=== PATIENT | female | born 1965 | race Caucasian/White ===

== ENCOUNTER 2016-12-19 10:22 | Emergency (ER) | payer OTHER ==
[~2016-12-19] VITALS: Ht 157.4 cm; Wt 90.7 kg
[~2016-12-19 10:22] MED LIST: ASPIRIN ADULT L81 M1 PO; ATIVAN1 MG PO; ATORVASTATIN CA20 M1 PO; CELEXA20 MG PO; CIPRO500 MG PO; CLEOCIN150 MG PO; CLINDAMYCIN300 MG PO; CYCLOBENZAPRINE10 MG PO; FIORINAL 325 MG1 CAP PO; FLAGYL500 MG PO; HYDROCODONE BIT1 T11 PO; LEVOFLOXACIN500 MG PO; LIPITOR20 MG PO; LIPITOR40 MG PO; LISINOPRIL10 M1 PO; LISINOPRIL10 MG PO; LISINOPRIL20 MG PO; MOTRIN400 MG PO; MOTRIN600 MG PO; MOTRIN800 MG PO; NAPROSYN500 MG PO; NORCO 325 MG-51 TAB PO; NORCO 325 MG-7.1 TAB PO; OMEPRAZOLE40 MG PO; PAIN & FEVER R325 MG PO; PEN-VK500 MG PO; PENICILLIN-VK500 M1 PO; PERCOCET 325 MG1 TA2 PO; PERIDEX 480 ML480 ML PO; PHENERGAN25 M1 PO; PREDNISONE10 MG PO; PRILOSEC20 MG PO; PRILOSEC40 M1 PO; PROVENTIL0.09 MG/A1 INH; PYRIDIUM200 M1 PO; TOBREX OPHTH S2.5 ML OPH; TRAMADOL HCL50 MG PO; ULTRAM50 MG PO; VESICARE10 MG PO; VIBRAMYCIN100 MG PO; VICO10300 PO; VICODIN 5/500 505 MG PO; ZITHROMAX250 MG PO; ZOFRAN4 MG PO
[2016-12-19 10:35] VITALS: BP 142/91
[2016-12-19] MEDS ORDERED: BACTRIM DS 8001 TA1 PO (12:10)
[2016-12-19] MEDS ORDERED: HYDROCODONE BIT1 T11 PO (12:10)
[2016-12-19] MEDS ORDERED: CEPHALEXIN500 M1 PO (12:10)
== END 2016-12-19 12:48 | disposition home or self-care (01) ==
LOC: ED 10:22
DX: L03.011 Cellulitis of right finger (principal); Z29.12 Encounter for prophylactic antivenin

== ENCOUNTER 2017-04-13 16:19 | Emergency (ER) | payer OTHER ==
[~2017-04-13] VITALS: Ht 170.1 cm; Wt 83.9 kg
[~2017-04-13 16:19] MED LIST changes: +BACTRIM DS 8001 TA1 PO; +CEPHALEXIN500 M1 PO
[2017-04-13] MEDS ORDERED: OMEPRAZOLE40 MG PO (16:25)
[2017-04-13 18:44] VITALS: BP 155/90
[2017-04-13] MEDS ORDERED: Motrin,Rufen800 MG PO (18:45)
[2017-04-14] MEDS ORDERED: 'PARAFON FORTE500 M1 PO (14:24)
== END 2017-04-13 19:59 | disposition home or self-care (01) ==
LOC: ED 16:19
DX: T14.8 Other injury of unspecified body region (principal); R51 Headache; M54.2 Cervicalgia; M25.551 Pain in right hip; M25.552 Pain in left hip; I10 Essential (primary) hypertension; E78.00 Pure hypercholesterolemia, unspecified; K21.9 Gastro-esophageal reflux disease without esophagitis; J44.9 Chronic obstructive pulmonary disease, unspecified; Z79.899 Other long term (current) drug therapy

== ENCOUNTER 2017-04-14 13:33 | Emergency (ER) | payer OTHER ==
[~2017-04-14 13:33] MED LIST changes: +Motrin,Rufen800 MG PO
[2017-04-14 13:38] VITALS: BP 168/90
[2017-04-14] MEDS ORDERED: 'PARAFON FORTE500 M1 PO (14:24)
== END 2017-04-14 15:15 | disposition home or self-care (01) ==
LOC: ED 13:33
DX: T14.8 Other injury of unspecified body region (principal); R07.81 Pleurodynia; M25.511 Pain in right shoulder; R03.0 Elevated blood-pressure reading, without diagnosis of hypertension; F17.200 Nicotine dependence, unspecified, uncomplicated; Z79.899 Other long term (current) drug therapy; V89.2XXA Person injured in unspecified motor-vehicle accident, traffic, initial encounter; Y93.89 Activity, other specified; Y92.89 Other specified places as the place of occurrence of the external cause; Y99.8 Other external cause status

== ENCOUNTER → 2017-05-21 | Day surgery (SDC) | payer OTHER ==
[2017-05-17 12:03] LABS: BASO % 0.5 % (0.0-1.0); EOS # 0.1 10*3/uL (0.0-0.4); EOS % 1.5 % (1.0-4.0); HEMATOCRIT 40.7 % (37.0-47.0); HEMOGLOBIN 13.7 g/dl (12.0-16.0); LYMPH # 1.8 10*3/uL (1.3-4.4); LYMPH % 30.9 % (27.0-41.0); MEAN CELL VOLUME 87.3 fl (81.0-99.0); MEAN CORPUSCULAR HGB 29.4 pg (27.0-31.0); MEAN CORPUSCULAR HGB CONC 33.7 g/dl (33.0-37.0); MEAN PLATELET VOLUME 9.8 fl (9.6-12.3); MONO # 0.3 10*3/uL (0.1-1.0); MONO % 5.7 % (3.0-9.0); NEUT # 3.7 10*3/uL (2.3-7.9); NEUT % 61.2 % (47.0-73.0); PLATELET COUNT AUTOMATED 190 10*3/uL (130-400); RED BLOOD COUNT 4.66 10*6/uL (4.10-5.10); RED CELL DISTRI WIDTH 12.7 % (0-14.5)
[2017-05-17 12:28] LABS: BUN 17 mg/dl (7-24); CHLORIDE 107 mmol/L (98-107); CREATININE 0.96 mg/dL (0.55-1.02); SODIUM 142 mmol/L (136-145)
[~2017-05-21] VITALS: Ht 160 cm; Wt 96.2 kg
[~2017-05-21] MED LIST changes: +'PARAFON FORTE500 M1 PO; +ACCUNEB 0.1.25 MG/1 INH; +ASPIRIN81 M1 PO; +LIPITOR10 MG PO; +LISINOPRIL5 MG PO; +OXYBUTYNIN5 MG PO
[2017-05-21 11:10] VITALS: BP 115/73
[2017-05-21 11:22] VITALS: BP 121/67
[2017-05-21 11:40] VITALS: BP 133/80
== END | disposition home or self-care (01) ==
LOC: SDC 05-17 12:30
DX: M67.441 Ganglion, right hand (principal); I10 Essential (primary) hypertension; K21.9 Gastro-esophageal reflux disease without esophagitis; F41.9 Anxiety disorder, unspecified; E78.00 Pure hypercholesterolemia, unspecified; Z98.890 Other specified postprocedural states; Z90.49 Acquired absence of other specified parts of digestive tract; Z98.51 Tubal ligation status; Z82.49 Family history of ischemic heart disease and other diseases of the circulatory system; F17.210 Nicotine dependence, cigarettes, uncomplicated

== ENCOUNTER → 2017-05-23 | Outpatient (CLI) | payer OTHER | END | disposition home or self-care (01) | LOC: WOUNDCARE 08:30 | DX: T81.31XA Disruption of external operation (surgical) wound, not elsewhere classified, initial encounter (principal); F17.210 Nicotine dependence, cigarettes, uncomplicated; Y83.8 Other surgical procedures as the cause of abnormal reaction of the patient, or of later complication, without mention of misadventure at the time of the procedure; Y92.89 Other specified places as the place of occurrence of the external cause ==

== ENCOUNTER → 2017-05-30 | Outpatient (CLI) | payer OTHER | END | disposition home or self-care (01) | LOC: WOUNDCARE 00:50 | DX: T81.89XD Other complications of procedures, not elsewhere classified, subsequent encounter (principal); M79.641 Pain in right hand; R22.31 Localized swelling, mass and lump, right upper limb; F17.210 Nicotine dependence, cigarettes, uncomplicated; Y83.8 Other surgical procedures as the cause of abnormal reaction of the patient, or of later complication, without mention of misadventure at the time of the procedure ==

== ENCOUNTER 2017-09-14 16:05 | Emergency (ER) | payer OTHER ==
[~2017-09-14] VITALS: Ht 160 cm; Wt 83.9 kg
--- NOTE | ~2017-09-14 | EKG ---
[place], [place] ELECTROCARDIOGRAM REPORT NAME: JANAY ELLINGTON UNIT #: [id number] ROOM: DOCTOR: MARTHA OLGUIN MD BIRTHDATE: [birth year] DOS: 09/14/2017 TIME: 1709 hours. Normal sinus rhythm at 69 beats per minute. Borderline measurement for first-degree heart block. Low voltage in precordial leads. An abnormal ECG. No previous tracing is available for comparison. MARTHA OLGUIN MD CM:EKGRPT:ELECTROCARDIOGRAM REPORT 1706 [id number] MARTHA OLGUIN MD
[2017-09-14 17:11] LABS: BASO % 0.4 % (0.0-1.0); EOS # 0.1 10*3/uL (0.0-0.4); EOS % 1.7 % (1.0-4.0); HEMOGLOBIN 14.8 g/dl (12.0-16.0); LYMPH # 2.1 10*3/uL (1.3-4.4); LYMPH % 39.2 % (27.0-41.0); MEAN CELL VOLUME 85.9 fl (81.0-99.0); MEAN CORPUSCULAR HGB 28.9 pg (27.0-31.0); MEAN CORPUSCULAR HGB CONC 33.6 g/dl (33.0-37.0); MEAN PLATELET VOLUME 9.6 fl (9.6-12.3); MONO # 0.3 10*3/uL (0.1-1.0); MONO % 5.1 % (3.0-9.0); NEUT # 2.8 10*3/uL (2.3-7.9); NEUT % 53.6 % (47.0-73.0); PLATELET COUNT AUTOMATED 201 10*3/uL (130-400); RED BLOOD COUNT 5.12 10*6/uL (4.10-5.10); RED CELL DISTRI WIDTH 12.8 % (0-14.5); WHITE BLOOD COUNT 5.3 10*3/uL (4.8-10.8)
[2017-09-14 17:15] VITALS: BP 146/83
[2017-09-14 17:22] LABS: ACT PARTIAL THROMBO TIME 23.6 SECONDS (20.8-31.5); INTERNATIONAL NORM RATIO 0.9 (2.0-3.5)
[2017-09-14 17:31] LABS: ALBUMIN 3.6 gm/dl (3.1-4.5); ALKALINE PHOSPHATASE 72 U/L (45-117); BUN 12 mg/dl (7-24); CHLORIDE 107 mmol/L (98-107); CREATININE 0.84 mg/dL (0.55-1.02); LIPASE 201 U/L (73-393); POTASSIUM 3.4 mmol/L (3.5-5.1); SGOT/AST 12 IU/L (3-35); SGPT/ALT 20 U/L (12-78); SODIUM 139 mmol/L (136-145); TOTAL PROTEIN 7.4 gm/dL (6.4-8.2)
[2017-09-14 17:32] LABS: TROPONIN I < 0.015 ng/ml (<0.045)
== END 2017-09-14 18:40 | disposition left against medical advice (07) ==
LOC: ED 16:05
PROVIDERS: Emergency Medicine
DX: R06.02 Shortness of breath (principal); R19.7 Diarrhea, unspecified; R51 Headache; R05 Cough; R07.9 Chest pain, unspecified; I10 Essential (primary) hypertension; E78.00 Pure hypercholesterolemia, unspecified; J44.9 Chronic obstructive pulmonary disease, unspecified; K21.9 Gastro-esophageal reflux disease without esophagitis; E66.01 Morbid (severe) obesity due to excess calories; Z79.899 Other long term (current) drug therapy; Z79.82 Long term (current) use of aspirin; Z68.39 Body mass index [BMI] 39.0-39.9, adult

== ENCOUNTER 2017-12-02 09:49 | Emergency (ER) | payer OTHER ==
[~2017-12-02] VITALS: Ht 160 cm; Wt 95.3 kg
[2017-12-02 09:52] VITALS: BP 166/107
[2017-12-02 10:20] LABS: BASO % 0.5 % (0.0-1.0); EOS # 0.1 10*3/uL (0.0-0.4); EOS % 1.2 % (1.0-4.0); HEMATOCRIT 41.2 % (37.0-47.0); HEMOGLOBIN 13.9 g/dl (12.0-16.0); LYMPH # 1.4 10*3/uL (1.3-4.4); LYMPH % 34.4 % (27.0-41.0); MEAN CELL VOLUME 85.7 fl (81.0-99.0); MEAN CORPUSCULAR HGB 28.9 pg (27.0-31.0); MEAN CORPUSCULAR HGB CONC 33.7 g/dl (33.0-37.0); MEAN PLATELET VOLUME 9.2 fl (9.6-12.3); MONO # 0.3 10*3/uL (0.1-1.0); MONO % 6.1 % (3.0-9.0); NEUT # 2.3 10*3/uL (2.3-7.9); NEUT % 57.6 % (47.0-73.0); PLATELET COUNT AUTOMATED 174 10*3/uL (130-400); RED BLOOD COUNT 4.81 10*6/uL (4.10-5.10); WHITE BLOOD COUNT 4.1 10*3/uL (4.8-10.8)
[2017-12-02 10:36] LABS: ALBUMIN 3.6 gm/dl (3.1-4.5); ALKALINE PHOSPHATASE 62 U/L (45-117); BUN 15 mg/dl (7-24); CHLORIDE 107 mmol/L (98-107); CREATININE 0.76 mg/dL (0.55-1.02); POTASSIUM 3.8 mmol/L (3.5-5.1); SGOT/AST 14 IU/L (3-35); SGPT/ALT 20 U/L (12-78); SODIUM 141 mmol/L (136-145); TOTAL PROTEIN 6.8 gm/dL (6.4-8.2)
[2017-12-02 10:39] LABS: TROPONIN I < 0.015 ng/ml (<0.045)
== END 2017-12-02 11:36 | disposition home or self-care (01) ==
LOC: ED 09:49
PROVIDERS: Nurse Practitioner Family
DX: I10 Essential (primary) hypertension (principal); J44.9 Chronic obstructive pulmonary disease, unspecified; K21.9 Gastro-esophageal reflux disease without esophagitis; E78.00 Pure hypercholesterolemia, unspecified; E66.9 Obesity, unspecified; F17.200 Nicotine dependence, unspecified, uncomplicated; Z90.49 Acquired absence of other specified parts of digestive tract; Z98.51 Tubal ligation status; Z98.890 Other specified postprocedural states; Z79.82 Long term (current) use of aspirin; Z68.39 Body mass index [BMI] 39.0-39.9, adult; Z79.899 Other long term (current) drug therapy

== ENCOUNTER 2017-12-21 08:55 | Emergency (ER) | payer OTHER ==
[~2017-12-21] VITALS: Ht 160 cm; Wt 95.3 kg
[2017-12-21 08:56] VITALS: BP 153/85
== END 2017-12-21 09:31 | disposition home or self-care (01) ==
LOC: ED 08:55
DX: S30.860A Insect bite (nonvenomous) of lower back and pelvis, initial encounter (principal); J44.9 Chronic obstructive pulmonary disease, unspecified; K21.9 Gastro-esophageal reflux disease without esophagitis; E78.00 Pure hypercholesterolemia, unspecified; E66.9 Obesity, unspecified; Z68.39 Body mass index [BMI] 39.0-39.9, adult; Z90.49 Acquired absence of other specified parts of digestive tract; Z98.51 Tubal ligation status; Z98.890 Other specified postprocedural states; Z79.82 Long term (current) use of aspirin; Z79.899 Other long term (current) drug therapy; W57.XXXA Bitten or stung by nonvenomous insect and other nonvenomous arthropods, initial encounter; Y93.89 Activity, other specified; Y92.096 Garden or yard of other non-institutional residence as the place of occurrence of the external cause; Y99.9 Unspecified external cause status

== ENCOUNTER 2018-09-01 08:58 | Inpatient (IN) | payer OTHER ==
[2018-09-01] VITALS (7 sets, daily range): BP systolic 128–163; BP diastolic 59–90
[~2018-09-01] VITALS: Ht 160 cm; Wt 97.2 kg
--- NOTE | ~2018-09-01 | EKG ---
[place], [place] ELECTROCARDIOGRAM REPORT NAME: JANAY ELLINGTON UNIT #: [id number] ROOM: 526 DOCTOR: TRE DRAFT REPORT BIRTHDATE: [birth year] [facility] Test Date: 2018-09-01 Test Time: 15:21:52 Pat Name: JANAY ELLINGTON Department: Room: 52 1 Gender: F Comb Fixer: Edilia Fowler : 1965 Requested By: YVON MORGAN Order Number: [id number] Reading MD: Tiffany Escudero MD Measurements Intervals [place] Rate: 65 P: [place]: QRS: 30 QRSD: 92 T: 29 QT: 408 QTc: 425 Interpretive Statements Atrial fibrillation Low voltage, precordial leads Abnormal R-wave progression, early transition No previous ECG available for comparison Electronically Signed On 09-01-2018 15:07:07 PST by Tiffany Escudero MD CM:EKGRPT:ELECTROCARDIOGRAM REPORT 1521 1507 YVON MORGAN EPIPHANY DRAFT REPORT YVON MORGAN
--- NOTE | ~2018-09-01 | EKG ---
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
--- NOTE | ~2018-09-01 | EKG ---
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
[2018-09-01 09:23] LABS: BASO % 0.6 % (0.0-1.0); EOS # 0.1 10*3/uL (0.0-0.4); EOS % 1.2 % (1.0-4.0); HEMOGLOBIN 13.6 g/dl (12.0-16.0); LYMPH # 1.7 10*3/uL (1.3-4.4); LYMPH % 34.1 % (27.0-41.0); MEAN CORPUSCULAR HGB 28.8 pg (27.0-31.0); MEAN CORPUSCULAR HGB CONC 32.4 g/dl (33.0-37.0); MEAN PLATELET VOLUME 9.7 fl (9.6-12.3); MONO # 0.2 10*3/uL (0.1-1.0); MONO % 4.3 % (3.0-9.0); NEUT % 59.6 % (47.0-73.0); PLATELET COUNT AUTOMATED 189 10*3/uL (130-400); RED BLOOD COUNT 4.72 10*6/uL (4.10-5.10); RED CELL DISTRI WIDTH 12.5 % (0-14.5); WHITE BLOOD COUNT 5.1 10*3/uL (4.8-10.8)
[2018-09-01 09:40] LABS: ALBUMIN 3.2 gm/dl (3.1-4.5); BUN 14 mg/dl (7-24); CHLORIDE 107 mmol/L (98-107); CREATININE 1.04 mg/dL (0.55-1.02); LIPASE 126 U/L (73-393); POTASSIUM 3.5 mmol/L (3.5-5.1); SGOT/AST 12 IU/L (3-35); SGPT/ALT 24 U/L (12-78); SODIUM 139 mmol/L (136-145)
[2018-09-01 09:42] LABS: ALKALINE PHOSPHATASE 79 U/L (45-117); TOTAL PROTEIN 6.8 gm/dL (6.4-8.2)
[2018-09-01 09:45] LABS: ACT PARTIAL THROMBO TIME 22.5 SECONDS (20.8-31.5); INTERNATIONAL NORM RATIO 0.9 (2.0-3.5)
[2018-09-01 10:08] LABS: TROPONIN I < 0.015 ng/ml (<0.045)
--- NOTE | 2018-09-01 11:22 | NUR ---
A 53, admitted to , under the services of ANGELA Bonilla DO with a diagnosis of CHEST PAIN, ACUTE RENAL INSUFFICIENCY. Chief complaint is HIGH BLOOD PRESSURE, CHEST PAIN. Patient arrived via wheel chair from ER. Monitor applied. Initial assessment completed. Vital signs taken and recorded. ANGELA BONILLA DO notified of admission to the unit. Orders received. See assessment for past medical history, medications and allergies. Patient and/or family oriented to unit. [facility]. Clothing/patient valuable form completed. KIKI GAMEZ
[2018-09-01] MEDS ORDERED: TOPROL XL25 MG PO (12:07)
[2018-09-01] MEDS ORDERED: OXYBUTYNIN5 MG PO (12:08)
--- NOTE | 2018-09-01 12:09 | NUR ---
MED REC UP TO DATE WITH PATIENT AT THIS TIME.
--- NOTE | 2018-09-01 12:13 | NUR ---
DR. CAMPUZANO OFFICE CALLED AT THIS TIME AND MADE AWARE OF NEW CONSULT.
--- NOTE | 2018-09-01 13:27 | NUR ---
ORTHOS NEGATIVE AT THIS TIME. PATIENT TOLERATED WELL.
--- NOTE | 2018-09-01 20:00 | NUR ---
PT. INFORMED THAT SHE WOULD BE NPO AFTER MIDNIGHT FOR STRESS TEST IN THE MORNING. PT. VERBALIZED UNDERSTANDING. VOICES NO C/O AT THIS TIME. CALL LIGHT WITHIN REACH.
[2018-09-02] VITALS: BP 122/65
--- NOTE | 2018-09-02 00:55 | NUR ---
24 HR chart check completed.
[2018-09-02 05:50] LABS: BASO % 0.4 % (0.0-1.0); EOS # 0.1 10*3/uL (0.0-0.4); EOS % 1.8 % (1.0-4.0); HEMATOCRIT 41.6 % (37.0-47.0); HEMOGLOBIN 13.5 g/dl (12.0-16.0); LYMPH # 2.1 10*3/uL (1.3-4.4); MEAN CELL VOLUME 89.5 fl (81.0-99.0); MEAN CORPUSCULAR HGB CONC 32.5 g/dl (33.0-37.0); MEAN PLATELET VOLUME 9.5 fl (9.6-12.3); MONO # 0.3 10*3/uL (0.1-1.0); NEUT % 54.6 % (47.0-73.0); PLATELET COUNT AUTOMATED 168 10*3/uL (130-400); RED BLOOD COUNT 4.65 10*6/uL (4.10-5.10); RED CELL DISTRI WIDTH 12.6 % (0-14.5); WHITE BLOOD COUNT 5.6 10*3/uL (4.8-10.8)
[2018-09-02 06:13] LABS: ALBUMIN 3.1 gm/dl (3.1-4.5); ALKALINE PHOSPHATASE 77 U/L (45-117); BUN 12 mg/dl (7-24); CHLORIDE 106 mmol/L (98-107); CHOLESTEROL 230 mg/dL (<200); CREATININE 0.78 mg/dL (0.55-1.02); FREE T4 1.01 ng/dl (0.76-1.46); HDL CHOLESTEROL 34 mg/dl (40-60); LDL CHOLESTEROL 176 mg/dL (9-159); PHOSPHOROUS 3.1 mg/dL (2.5-4.9); POTASSIUM 3.6 mmol/L (3.5-5.1); SGOT/AST 11 IU/L (3-35); SGPT/ALT 21 U/L (12-78); SODIUM 141 mmol/L (136-145); TOTAL PROTEIN 6.6 gm/dL (6.4-8.2); TRIGLYCERIDES 102 mg/dl (<150); VLDL CHOLESTEROL 20 mg/dL (6-40)
[2018-09-02 08:00] VITALS: BP 134/66
[2018-09-02 08:25] LABS: VITAMIN D, 25-HYDROXY 37.5 ng/mL (30-100)
--- NOTE | 2018-09-02 10:30 | NUR ---
INFORMED CONSENT SIGNED FOR STANDARD STRESS TEST WITH DR. CAMPUZANO. RESTING EKG NSR, HR 66, BP 124/84. COMPLETED 6:53 OF A STANDARD HARSH PROTOCOL COMPLETING :53 STAGE III, 3.4MPH/14% GRADE. PEAK HEART RATE OF 144 ACHIEVED WHICH IS 85% PREDICTED MAXIMUM AND A PEAK BP OF 158/80. NO ARRHYTHMIAS OR ST CHANGES NOTED. TEST TERMINATED D/T FATIGUE AND SOB. HAS AN AVERAGE EXERCISE TOLERANCE. LAST RECOVERY HR 78, BP 140/80. THIS IS A NEGATIVE STRESS TEST.
--- NOTE | 2018-09-02 10:35 | NUR ---
Beader Tender in to talk to patient. Patient states lives at HOME with . There are NO steps in the home. Physician: Grover COLE [facility]: [facility] Home health services: NONE Patient's level of ADLs: INDEPENDENT Patient has working utilities: YES DME: NONE Follow-up physician's appointment after d/c: WILL BE MADE BY HOSPITALIST NURSE DIRECTOR ON DISCHARGE Does patient want to access PORTAL?: NO Discharge plan PT STATES SHE LIVES AT [place] WITH AND IS INDEPENDENT IN CARE. STATES NO NEEDS AT HOME AFTER DISCHARGE. PT CAN BE DISCHARGED TO HOME WHEN MEDICALLY STABLE. WILL CONTINUE TO FOLLOW.. DOMINIC FELIX
[2018-09-02 12:00] VITALS: BP 111/46
[2018-09-02 16:00] VITALS: BP 143/75
[2018-09-02] MEDS ORDERED: ATORVASTATIN CA80 M1 PO (16:15)
--- NOTE | 2018-09-02 18:31 | NUR ---
Discharge instructions reviewed with patient/family. Patient receptive and verbalizes understanding. Follow-up care arranged. Written instructions given to patient/family. WENT OVER DISCHARGE PACKET WITH PATIENT. PATIENT RECIEVED PRESCRIPTION. IV REMOVED, PATIENT TOLERATED WELL. HEART MONITOR REMOVED AND PLACED IN NURSING STATION. PATIENT DENIES ANY NEEDS AT THIS TIME. PATIENT DENIES THE NEED FOR WHEELCHAIR. PATIENT AMBULATED OFF FLOOR WITH FAMILY AT THIS TIME. KIKI GAMEZ
[2018-10-31] MEDS ORDERED: MUCINEX D ER 61 EACH PO (10:03)
[2018-10-31] MEDS ORDERED: AVPAK AZITHROM250 M1 PO (10:05)
[2018-10-31] MEDS ORDERED: ZANTAC 150150 MG PO (10:06)
[2018-10-31] MEDS ORDERED: LOPRESSOR25 MG PO (10:16)
[2018-11-04] MEDS ORDERED: FOLGARD TABLET1 EACH PO (13:06)
[2018-11-04] MEDS ORDERED: FISH OIL 1,0001 EAC1 PO (13:06)
[2018-11-04] MEDS ORDERED: MACROBID100 M1 PO (18:12)
[2018-11-04] MEDS ORDERED: VISTARIL25 M2 PO (18:12)
[2018-11-04] MEDS ORDERED: COLACE100 MG PO (18:12)
[2018-11-07] MEDS ORDERED: COLACE100 MG PO (13:48)
[2018-11-11] MEDS ORDERED: FLAGYL500 MG PO (11:02)
[2018-11-11] MEDS ORDERED: ZOFRAN4 MG PO (11:02)
[2018-11-11] MEDS ORDERED: CIPRO250 MG PO (11:02)
== END 2018-09-02 18:31 | disposition home or self-care (01) | DRG 205 ==
LOC: ED 08:58 → 5E 10:28 → EDHOLD 10:28 → 5E 11:04
PROVIDERS: Nurse Practitioner Family; Registered Nurse; ADMIT Internal Medicine
PROC: 4A02XM4 Measurement of Cardiac Total Activity, External Approach (ICD-10-PCS; principal; 2018-09-02)
DX: M94.0 Chondrocostal junction syndrome [Tietze] (principal); N17.0 Acute kidney failure with tubular necrosis; R07.89 Other chest pain; K21.9 Gastro-esophageal reflux disease without esophagitis; F41.1 Generalized anxiety disorder; E86.0 Dehydration; E44.0 Moderate protein-calorie malnutrition; I10 Essential (primary) hypertension; J44.9 Chronic obstructive pulmonary disease, unspecified; E78.00 Pure hypercholesterolemia, unspecified; E66.9 Obesity, unspecified; F17.210 Nicotine dependence, cigarettes, uncomplicated; R73.9 Hyperglycemia, unspecified; R00.2 Palpitations; E78.5 Hyperlipidemia, unspecified; E83.51 Hypocalcemia; Z68.37 Body mass index [BMI] 37.0-37.9, adult; Z91.81 History of falling; Z87.440 Personal history of urinary (tract) infections; Z90.49 Acquired absence of other specified parts of digestive tract; Z98.51 Tubal ligation status; Z82.49 Family history of ischemic heart disease and other diseases of the circulatory system; Z83.438 Family history of other disorder of lipoprotein metabolism and other lipidemia; Z84.89 Family history of other specified conditions; Z79.82 Long term (current) use of aspirin; Z79.899 Other long term (current) drug therapy; Z71.6 Tobacco abuse counseling

== ENCOUNTER 2018-10-20 15:20 | Emergency (ER) | payer OTHER ==
[~2018-10-20] VITALS: Ht 160 cm; Wt 97.5 kg
[~2018-10-20 15:20] MED LIST changes: +ATORVASTATIN CA80 M1 PO; +TOPROL XL25 MG PO
[2018-10-20 15:22] VITALS: BP 142/90
[2018-10-20 16:04] LABS: BASO % 0.6 % (0.0-1.0); EOS # 0.1 10*3/uL (0.0-0.4); HEMOGLOBIN 14.4 g/dl (12.0-16.0); LYMPH # 2.5 10*3/uL (1.3-4.4); LYMPH % 34.2 % (27.0-41.0); MEAN CELL VOLUME 88.7 fl (81.0-99.0); MEAN CORPUSCULAR HGB 29.7 pg (27.0-31.0); MEAN CORPUSCULAR HGB CONC 33.5 g/dl (33.0-37.0); MEAN PLATELET VOLUME 10.2 fl (9.6-12.3); MONO # 0.4 10*3/uL (0.1-1.0); MONO % 5.8 % (3.0-9.0); NEUT # 4.2 10*3/uL (2.3-7.9); NEUT % 58.1 % (47.0-73.0); PLATELET COUNT AUTOMATED 208 10*3/uL (130-400); RED BLOOD COUNT 4.85 10*6/uL (4.10-5.10); RED CELL DISTRI WIDTH 12.8 % (0-14.5); WHITE BLOOD COUNT 7.3 10*3/uL (4.8-10.8)
[2018-10-20 16:24] LABS: ACT PARTIAL THROMBO TIME 21.6 SECONDS (20.8-31.5); INTERNATIONAL NORM RATIO 0.9 (2.0-3.5)
[2018-10-20 16:32] LABS: ALBUMIN 3.4 gm/dl (3.1-4.5); ALKALINE PHOSPHATASE 90 U/L (45-117); BUN 11 mg/dl (7-24); CHLORIDE 108 mmol/L (98-107); CREATININE 0.93 mg/dL (0.55-1.02); POTASSIUM 4.4 mmol/L (3.5-5.1); SGOT/AST 17 IU/L (3-35); SGPT/ALT 19 U/L (12-78); SODIUM 141 mmol/L (136-145); TOTAL PROTEIN 7.2 gm/dL (6.4-8.2)
[2018-10-20] MEDS ORDERED: ZOFRAN4 MG PO (18:34)
[2018-10-31] MEDS ORDERED: MUCINEX D ER 61 EACH PO (10:03)
[2018-10-31] MEDS ORDERED: AVPAK AZITHROM250 M1 PO (10:05)
[2018-10-31] MEDS ORDERED: ZANTAC 150150 MG PO (10:06)
[2018-10-31] MEDS ORDERED: LOPRESSOR25 MG PO (10:16)
[2018-11-04] MEDS ORDERED: FISH OIL 1,0001 EAC1 PO (13:06)
[2018-11-04] MEDS ORDERED: FOLGARD TABLET1 EACH PO (13:06)
[2018-11-04] MEDS ORDERED: MACROBID100 M1 PO (18:12)
[2018-11-04] MEDS ORDERED: VISTARIL25 M2 PO (18:12)
[2018-11-04] MEDS ORDERED: COLACE100 MG PO (18:12)
[2018-11-07] MEDS ORDERED: COLACE100 MG PO (13:48)
[2018-11-11] MEDS ORDERED: CIPRO250 MG PO (11:02)
[2018-11-11] MEDS ORDERED: FLAGYL500 MG PO (11:02)
[2018-11-11] MEDS ORDERED: ZOFRAN4 MG PO (11:02)
== END 2018-10-20 18:42 | disposition home or self-care (01) ==
LOC: ED 15:20
PROVIDERS: Emergency Medicine
DX: F45.8 Other somatoform disorders (principal); J39.8 Other specified diseases of upper respiratory tract; I10 Essential (primary) hypertension; E78.00 Pure hypercholesterolemia, unspecified; J44.9 Chronic obstructive pulmonary disease, unspecified; E66.9 Obesity, unspecified; F17.200 Nicotine dependence, unspecified, uncomplicated; Z79.899 Other long term (current) drug therapy; Z79.82 Long term (current) use of aspirin; Z68.30 Body mass index [BMI] 30.0-30.9, adult; Z90.49 Acquired absence of other specified parts of digestive tract

== ENCOUNTER 2018-11-02 12:02 | Emergency (ER) | payer OTHER ==
[~2018-11-02] VITALS: Ht 160 cm; Wt 93.4 kg
--- NOTE | ~2018-11-02 | EKG ---
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
[~2018-11-02 12:02] MED LIST changes: +AVPAK AZITHROM250 M1 PO; +LOPRESSOR25 MG PO; +MUCINEX D ER 61 EACH PO; +ZANTAC 150150 MG PO
[2018-11-02 12:07] VITALS: BP 177/62
[2018-11-04] MEDS ORDERED: FISH OIL 1,0001 EAC1 PO (13:06)
[2018-11-04] MEDS ORDERED: FOLGARD TABLET1 EACH PO (13:06)
[2018-11-04] MEDS ORDERED: MACROBID100 M1 PO (18:12)
[2018-11-04] MEDS ORDERED: VISTARIL25 M2 PO (18:12)
[2018-11-04] MEDS ORDERED: COLACE100 MG PO (18:12)
[2018-11-07] MEDS ORDERED: COLACE100 MG PO (13:48)
[2018-11-11] MEDS ORDERED: CIPRO250 MG PO (11:02)
[2018-11-11] MEDS ORDERED: FLAGYL500 MG PO (11:02)
[2018-11-11] MEDS ORDERED: ZOFRAN4 MG PO (11:02)
== END 2018-11-02 14:25 | disposition home or self-care (01) ==
LOC: ED 12:02
DX: F41.9 Anxiety disorder, unspecified (principal); R06.02 Shortness of breath; R20.2 Paresthesia of skin; J44.9 Chronic obstructive pulmonary disease, unspecified; K21.9 Gastro-esophageal reflux disease without esophagitis; I10 Essential (primary) hypertension; E78.00 Pure hypercholesterolemia, unspecified; E66.9 Obesity, unspecified; F17.200 Nicotine dependence, unspecified, uncomplicated; Z79.899 Other long term (current) drug therapy; Z79.82 Long term (current) use of aspirin; Z68.39 Body mass index [BMI] 39.0-39.9, adult

== ENCOUNTER → 2018-12-04 | Outpatient (CLI) | payer OTHER ==
[~2018-12-04] MED LIST changes: +CIPRO250 MG PO; +COLACE100 MG PO; +FISH OIL 1,0001 EAC1 PO; +FOLGARD TABLET1 EACH PO; +MACROBID100 M1 PO; +VISTARIL25 M2 PO
[2018-12-04 10:25] LABS: HEMATOCRIT 38.7 % (37.0-47.0); HEMOGLOBIN 12.8 g/dl (12.0-16.0); MEAN CELL VOLUME 89.4 fl (81.0-99.0); MEAN CORPUSCULAR HGB 29.6 pg (27.0-31.0); MEAN CORPUSCULAR HGB CONC 33.1 g/dl (33.0-37.0); RED BLOOD COUNT 4.33 10*6/uL (4.10-5.10); RED CELL DISTRI WIDTH 13.2 % (0-14.5); WHITE BLOOD COUNT 4.8 10*3/uL (4.8-10.8)
[2018-12-04 10:53] LABS: CHLORIDE 110 mmol/L (98-107); POTASSIUM 3.5 mmol/L (3.5-5.1); SODIUM 143 mmol/L (136-145)
[2018-12-04 11:14] LABS: ALBUMIN 2.9 gm/dl (3.1-4.5); ALKALINE PHOSPHATASE 79 U/L (45-117); BUN 10 mg/dl (7-24); CHOLESTEROL 162 mg/dL (<200); CPK 46 U/L (26-192); CREATININE 0.79 mg/dL (0.55-1.02); HDL CHOLESTEROL 33 mg/dl (40-60); LDL CHOLESTEROL 105 mg/dL (9-159); SGOT/AST 17 IU/L (3-35); SGPT/ALT 36 U/L (12-78); TOTAL PROTEIN 6.5 gm/dL (6.4-8.2); TRIGLYCERIDES 122 mg/dl (<150); VLDL CHOLESTEROL 24 mg/dL (6-40)
[2018-12-04 12:07] LABS: VITAMIN D, 25-HYDROXY 39.4 ng/mL (30-100)
[2018-12-05 06:12] LABS: HEPATITIS B SURFACE AG Negative (Negative); HEPATITIS C VIRUS ANTIBODY <0.1 s/co (0.0-0.9)
[2018-12-05 08:09] LABS: H PYLORI IGG AB 162289 0.59 (0.00-0.79); RHEUMATOID ARTHRITIS FACTOR <10.0 IU/mL (0.0-13.9)
== END | disposition home or self-care (01) ==
LOC: LAB 09:56
PROVIDERS: Family Medicine
DX: R06.02 Shortness of breath (principal); E78.00 Pure hypercholesterolemia, unspecified; I10 Essential (primary) hypertension; E74.9 Disorder of carbohydrate metabolism, unspecified; E55.9 Vitamin D deficiency, unspecified; M25.50 Pain in unspecified joint; K58.9 Irritable bowel syndrome, unspecified

== ENCOUNTER 2019-04-09 08:54 | Emergency (ER) | payer OTHER ==
[~2019-04-09] VITALS: Ht 160 cm; Wt 95.3 kg
--- NOTE | ~2019-04-09 | EKG ---
[place], [place] ELECTROCARDIOGRAM REPORT NAME: JANAY ELLINGTON UNIT #: [id number] ROOM: DOCTOR: EPIPHANY DRAFT REPORT BIRTHDATE: [birth year] [facility] Test Date: 2019-04-09 Test Time: 09:01:38 Pat Name: JANAY ELLINGTON Department: Room: Gender: F Painting Manager: : 1965 Requested By: LISA REYEZ Order Number: [id number] Reading MD: Elijah Vivar Measurements Intervals [place] Rate: 72 P: 5 WI: 175 QRS: 9 QRSD: 89 T: 6 QT: 388 QTc: 425 Interpretive Statements Sinus rhythm Low voltage, precordial leads RSR' in V1 or V2, right VCD or RVH Compared to ECG 04/07/2019 17:02:22 Right ventricular hypertrophy now present RSR' in V1 or V2 now present Electronically Signed On 04-10-2019 9:24:46 PDT by Elijah Vivar CM:EKGRPT:ELECTROCARDIOGRAM REPORT 0 3 LISA TOLEDO DRAFT REPORT LISA REYEZ MD
[~2019-04-09 08:54] MED LIST changes: +NORCO 5-325 TA1 EACH PO
[2019-04-09 09:23] VITALS: BP 118/67
[2019-04-09 09:32] LABS: BASO % 0.4 % (0.0-1.0); EOS # 0.2 10*3/uL (0.0-0.4); EOS % 2.8 % (1.0-4.0); HEMATOCRIT 42.5 % (37.0-47.0); HEMOGLOBIN 13.7 g/dl (12.0-16.0); LYMPH # 1.3 10*3/uL (1.3-4.4); LYMPH % 23.3 % (27.0-41.0); MEAN CELL VOLUME 88.9 fl (81.0-99.0); MEAN CORPUSCULAR HGB 28.7 pg (27.0-31.0); MEAN CORPUSCULAR HGB CONC 32.2 g/dl (33.0-37.0); MEAN PLATELET VOLUME 9.8 fl (9.6-12.3); MONO # 0.3 10*3/uL (0.1-1.0); MONO % 5.5 % (3.0-9.0); NEUT # 3.8 10*3/uL (2.3-7.9); NEUT % 67.8 % (47.0-73.0); PLATELET COUNT AUTOMATED 194 10*3/uL (130-400); RED BLOOD COUNT 4.78 10*6/uL (4.10-5.10); RED CELL DISTRI WIDTH 12.6 % (0-14.5); WHITE BLOOD COUNT 5.7 10*3/uL (4.8-10.8)
[2019-04-09 09:43] LABS: INTERNATIONAL NORM RATIO 0.9 (2.0-3.5)
[2019-04-09 09:51] LABS: ALBUMIN 3.5 gm/dl (3.1-4.5); ALKALINE PHOSPHATASE 66 U/L (45-117); BUN 13 mg/dl (7-24); CHLORIDE 106 mmol/L (98-107); POTASSIUM 3.9 mmol/L (3.5-5.1); SGOT/AST 14 IU/L (3-35); SGPT/ALT 20 U/L (12-78); SODIUM 140 mmol/L (136-145); TOTAL PROTEIN 6.9 gm/dL (6.4-8.2)
[2019-04-09 09:54] LABS: TROPONIN I < 0.015 ng/ml (<0.045)
[2019-04-09] MEDS ORDERED: PREDNISONE50 MG PO (10:57)
[2019-04-09] MEDS ORDERED: VIBRAMYCIN100 MG PO (10:57)
[2019-04-09] MEDS ORDERED: SPIRIVA -- 3018 MCG INH (10:57)
== END 2019-04-09 11:06 | disposition home or self-care (01) ==
LOC: ED 08:54
PROVIDERS: Emergency Medicine
DX: J44.1 Chronic obstructive pulmonary disease with (acute) exacerbation (principal); R91.1 Solitary pulmonary nodule; R42 Dizziness and giddiness; R11.0 Nausea; M79.605 Pain in left leg; R60.0 Localized edema; R20.2 Paresthesia of skin; R20.0 Anesthesia of skin; E66.9 Obesity, unspecified; I10 Essential (primary) hypertension; E78.5 Hyperlipidemia, unspecified; K21.9 Gastro-esophageal reflux disease without esophagitis; F17.200 Nicotine dependence, unspecified, uncomplicated; Z90.49 Acquired absence of other specified parts of digestive tract; Z87.19 Personal history of other diseases of the digestive system; Z79.899 Other long term (current) drug therapy; Z79.82 Long term (current) use of aspirin; Z68.39 Body mass index [BMI] 39.0-39.9, adult

== ENCOUNTER → 2019-04-14 | Outpatient (CLI) | payer OTHER ==
[~2019-04-14] MED LIST changes: +PREDNISONE50 MG PO; +SPIRIVA -- 3018 MCG INH
[2019-04-14 09:08] LABS: HEMOGLOBIN 14.2 g/dl (12.0-16.0); MEAN CELL VOLUME 89.1 fl (81.0-99.0); MEAN CORPUSCULAR HGB 28.7 pg (27.0-31.0); MEAN CORPUSCULAR HGB CONC 32.3 g/dl (33.0-37.0); MEAN PLATELET VOLUME 9.9 fl (9.6-12.3); RED BLOOD COUNT 4.94 10*6/uL (4.10-5.10); RED CELL DISTRI WIDTH 12.5 % (0-14.5); WHITE BLOOD COUNT 5.7 10*3/uL (4.8-10.8)
[2019-04-14 09:44] LABS: ALBUMIN 3.5 gm/dl (3.1-4.5); ALKALINE PHOSPHATASE 67 U/L (45-117); BUN 19 mg/dl (7-24); CHLORIDE 105 mmol/L (98-107); CPK 49 U/L (26-192); CREATININE 0.79 mg/dL (0.55-1.02); POTASSIUM 3.9 mmol/L (3.5-5.1); SGOT/AST 10 IU/L (3-35); SGPT/ALT 16 U/L (12-78); SODIUM 141 mmol/L (136-145)
[2019-04-14 09:51] LABS: TOTAL PROTEIN 7.1 gm/dL (6.4-8.2)
[2019-04-15 04:05] LABS: RHEUMATOID ARTHRITIS FACTOR <10.0 IU/mL (0.0-13.9)
== END | disposition home or self-care (01) ==
LOC: LAB 08:34
PROVIDERS: Family Medicine
DX: R11.0 Nausea (principal); M79.10 Myalgia, unspecified site; M25.50 Pain in unspecified joint

== ENCOUNTER 2019-05-03 11:01 | Inpatient (IN) | payer OTHER ==
[~2019-05-03] VITALS: Ht 160 cm; Wt 96.7 kg
[2019-05-03] VITALS (7 sets, daily range): BP systolic 103–139; BP diastolic 48–87
--- NOTE | ~2019-05-03 | EKG ---
[place], [place] ELECTROCARDIOGRAM REPORT NAME: JANAY ELLINGTON UNIT #: [id number] ROOM: 503 DOCTOR: TRE DRAFT REPORT BIRTHDATE: [birth year] [facility] Test Date: 2019-05-03 Test Time: 16:36:32 Pat Name: JANAY ELLINGTON Department: Room: 503 Gender: F Union Organiser: Yao Keys : 1965 Requested By: KAREEM HSIEH Order Number: [id number] Reading MD: Elijah Vivar Measurements Intervals [place] Rate: 92 P: 32 PA: 181 QRS: 7 QRSD: 90 T: 4 QT: 367 QTc: 455 Interpretive Statements Sinus rhythm Low voltage, precordial leads RSR' in V1 or V2, right VCD or RVH Compared to ECG 04/09/2019 09:01:38 No significant changes Electronically Signed On 05-04-2019 11:55:42 PDT by Elijah Vivar CM:EKGRPT:ELECTROCARDIOGRAM REPORT 1636 1155 KAREEM RIDLEY DRAFT REPORT KAREEM HSIEH DO
--- NOTE | ~2019-05-03 | EKG ---
[place], [place] ELECTROCARDIOGRAM REPORT NAME: JANAY ELLINGTON UNIT #: [id number] ROOM: 503 DOCTOR: TRE DRAFT REPORT BIRTHDATE: [birth year] [facility] Test Date: 2019-05-03 Test Time: 11:05:04 Pat Name: JANAY ELLINGTON Department: Room: 503 Gender: F Groutman: : 1965 Requested By: KAREEM HSIEH Order Number: [id number] Reading MD: Elijah Vivar Measurements Intervals [place] Rate: 113 P: 59 GA: 163 QRS: 30 QRSD: 105 T: -3 QT: 367 QTc: 504 Interpretive Statements Sinus tachycardia Low voltage, precordial leads Borderline T abnormalities, anterior leads Borderline prolonged QT interval Compared to ECG 04/09/2019 09:01:38 T-wave abnormality now present Sinus rhythm no longer present Right ventricular hypertrophy no longer present Electronically Signed On 05-04-2019 11:53:24 PDT by Elijah Vivar CM:EKGRPT:ELECTROCARDIOGRAM REPORT 1105 1153 KAREEM RIDLEY DRAFT REPORT KAREEM HSIEH DO
--- NOTE | ~2019-05-03 | CON ---
[place], [place] REPORT OF CONSULTATION NAME: JANAY ELLINGTON [facility] #: [id number] UNIT #: [id number] ROOM: 503 DOCTOR: MARTAH OLGUIN MD BIRTHDATE: [birth year] DOS: 05/04/2019 I am seeing this patient on behalf of Dr. Sawant. HISTORY OF PRESENT ILLNESS: This is a 54-year-old -[place] woman with a history of longstanding hypertension, hyperlipidemia, esophageal stricture, generalized anxiety disorder. She has never had a stroke, heart attack, heart failure, any documented rhythm disorder of the heart or any kidney problems. She has smoked cigarettes, does not use alcoholic beverages. She had been feeling somewhat tired, just to get some extra prep she took a couple of tablets of caffeine" energy pills" and soon thereafter, she developed some palpitations, felt rather strange, came to the ER where she says she almost passed out and she had typical palpitations, but in the ER, she did not have any dysrhythmia, only sinus tachycardia. She also tells me that she has had palpitation for the last year and a half. She had fast beating heart that occurs frequently and it lasts for a few seconds to a minute or two. Really does not last for more than that. She has about 3-4 episodes a week. There is some lightheadedness with it, but she has not had any loss of consciousness. No chest pain, sweating or nausea. She has not passed out with palpitations. HOME MEDICATIONS: Include cilostazol 100 mg daily, aspirin 81 daily, loratadine 10 mg daily, metoprolol 25 b.i.d., omeprazole 40 daily, oxybutynin 15 and Zantac 300 mg at night, metoprolol tartrate 25 mg b.i.d. PHYSICAL EXAMINATION: GENERAL: This reveals the patient is moderately obese. She is very pleasant and alert. There is no thyromegaly or finger clubbing. She is not jaundiced, not cyanotic. VITAL SIGNS: Pulse is 76 and regular, blood pressure 130/78. NECK: JVP is normal. AJR is negative. There is no carotid bruit. HEART: There is no cardiomegaly. There are no murmurs or rubs. There are no extra heart sounds are present. Pedal pulses are palpable. No edema of the lower extremities. RESPIRATORY: She is not tachypneic. Percussion note is normal. Auscultation revealed clear lungs. ABDOMEN: Supple, nontender. There is no tenderness, guarding or rigidity. Liver is not enlarged and there is no bruit. LABORATORY DATA: Three ECG sets have shown normal sinus rhythm and essentially normal pattern and one in the ER showed normal sinus rhythm without much tachycardia. Troponin I levels are normal. While on the monitored bed, she has not shown any dysrhythmias. She had an echocardiogram in August of this year, which was normal. She had a Lexiscan Cardiolite study done in 2015 that showed normal perfusion images. IMPRESSION: This patient had palpitations, which probably were caused by [place], [place] REPORT OF CONSULTATION NAME: JANAY ELLINGTON UNIT #: [id number] ROOM: [facility] DOCTOR: MARTHA OLGUIN MD BIRTHDATE: [birth year] excessive caffeine intake. She is doing fine and has not shown any dysrhythmias while she has been in the hospital. RECOMMENDATIONS: I think a 7-day event monitor, which should be done to see if indeed there are any rhythm issues with this patient. I thank you on behalf of Dr. Sawant for this consult. MARTHA OLGUIN MD CM:CONSTR:REPORT OF CONSULTATION 1101 05/04/19 1119 interface
--- NOTE | ~2019-05-03 | EKG ---
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: : 1965 Requested By: KAREEM HSIEH Order Number: [id number] Reading MD: Elijah Vivar Measurements Intervals [place] Rate: 82 P: 27 ND: 174 QRS: 10 QRSD: 89 T: 4 QT: 386 QTc: 451 Interpretive Statements Sinus arrhythmia Low voltage, precordial leads Borderline T abnormalities, anterior leads Compared to ECG 04/09/2019 09:01:38 T-wave abnormality now present Sinus rhythm no longer present Right ventricular hypertrophy no longer present Electronically Signed On 05-04-2019 11:54:21 PDT by Elijah Vivar CM:EKGRPT:ELECTROCARDIOGRAM REPORT 1345 1154 KAREEM RIDLEY DRAFT REPORT KAREEM HSIEH DO
--- NOTE | ~2019-05-03 | WRIGHTHP ---
[place], [place] PATIENT HISTORY AND PHYSICAL EXAM NAME: JANAY ELLINGTON [facility] #: [id number] UNIT #: [id number] ROOM: 503 DOCTOR: LANI GARCIAS MD BIRTHDATE: [birth year] DOS: 05/03/2019 HISTORY OF PRESENT ILLNESS: This patient is 54 years old. The patient comes in with complaints of palpitations. The patient states that she took two caffeine pills and drank a few glasses of coffee because she was tired. She has never done that before, but then noticed that her heart was racing fast and so decided to come into the Emergency Room. She denies having any chest pains or palpitations, does not have any fever or chills. The patient states for the last 4-5 months, she has noticed palpitations at rest as well as during activities. It comes and goes. It is not associated with chest pains or shortness of breath. She did mention it to her PCP. No workup was done. PAST MEDICAL HISTORY: Significant for: 1. Claudication pain in the lower legs. 2. History of nodule in the lung. Last hospitalization in 10/2018 with difficulty swallowing, had a barium swallow. 3. Esophageal stricture. 4. Generalized anxiety disorder. 5. Benign hypertension. 6. COPD. 7. Moderate cigarette smoker. 8. Chronic pain. MEDICATIONS: She is currently on are cilostazol 100 mg daily, aspirin 81 mg daily, loratadine 10 daily, metoprolol 25 b.i.d., omeprazole 40 daily, oxybutynin 15 daily, Zantac 300 at bedtime. SOCIAL HISTORY: Smokes about 1 pack of cigarettes, which lasts about 5 days. Denies using any alcohol. PHYSICAL EXAMINATION: GENERAL: She is awake and alert and oriented. VITAL SIGNS: Graphic trend shows a pressure of 124/74, pulse of 78, respirations 18, temperature 97.9. LUNGS: Clear. HEART: Regular. ABDOMEN: Obese, soft, nontender. EXTREMITIES: Without any edema. ASSESSMENT AND PLAN: 1. Palpitations with evidence of supraventricular tachycardia following intake of caffeine pills and multiple cups of coffee. She has experienced palpitations for a few months now, so we will check an echocardiogram, monitored admission, thyroid function test. Continue beta blockers. 2. Lactic acidosis of unknown etiology. The patient's lactic acid has come down. Troponins have also come back normal, we will schedule the stress. 3. Moderate cigarette smoker. The patient is advised to have a stress test and echocardiogram because of significant risk factors. 4. Presence of a nodule in the chest. We will do a CT of the chest to rule out other pathology. [place], [place] PATIENT HISTORY AND PHYSICAL EXAM NAME: [facility]Y ELLINGTON [facility] [id number] UNIT #: [id number] ROOM: [facility] DOCTOR: LANI GARCIAS MD BIRTHDATE: [birth year] LANI GARCIAS MD CM:HISPHYS:PATIENT HISTORY AND PHYSICAL EXAMINATION 3 1 LANI GARCIAS MD 05/04/19 09 interface
[2019-05-03 11:15] LABS: BASO % 0.3 % (0.0-1.0); EOS % 0.5 % (1.0-4.0); HEMATOCRIT 41.1 % (37.0-47.0); HEMOGLOBIN 13.8 g/dl (12.0-16.0); LYMPH # 1.2 10*3/uL (1.3-4.4); LYMPH % 16.2 % (27.0-41.0); MEAN CELL VOLUME 85.6 fl (81.0-99.0); MEAN CORPUSCULAR HGB 28.8 pg (27.0-31.0); MEAN CORPUSCULAR HGB CONC 33.6 g/dl (33.0-37.0); MEAN PLATELET VOLUME 9.4 fl (9.6-12.3); MONO # 0.3 10*3/uL (0.1-1.0); MONO % 4.1 % (3.0-9.0); NEUT # 5.9 10*3/uL (2.3-7.9); NEUT % 78.6 % (47.0-73.0); PLATELET COUNT AUTOMATED 257 10*3/uL (130-400); WHITE BLOOD COUNT 7.5 10*3/uL (4.8-10.8)
[2019-05-03 11:27] LABS: ACT PARTIAL THROMBO TIME 25.2 SECONDS (20.0-32.1); INTERNATIONAL NORM RATIO 0.9 (2.0-3.5)
[2019-05-03 11:37] LABS: ALBUMIN 3.7 gm/dl (3.1-4.5); ALKALINE PHOSPHATASE 71 U/L (45-117); BUN 16 mg/dl (7-24); CHLORIDE 107 mmol/L (98-107); CREATININE 1.01 mg/dL (0.55-1.02); POTASSIUM 3.1 mmol/L (3.5-5.1); SGOT/AST 17 IU/L (3-35); SGPT/ALT 22 U/L (12-78); SODIUM 140 mmol/L (136-145); TOTAL PROTEIN 7.4 gm/dL (6.4-8.2)
[2019-05-03 11:40] LABS: TROPONIN I < 0.015 ng/ml (<0.045)
--- NOTE | 2019-05-03 11:42 | NUR ---
RESTING QUIETLY AFTER ATIVAN. PLACED ON 3L NC AFTER ATIVAN SHE IS DROWSY AND POX DROPPED TO 84%. SHE IS ON CONTINUOUS POX.
--- NOTE | 2019-05-03 11:54 | NUR ---
DR HSIEH AWARE OF CRITICAL LACTIC ACID OF 4.6
--- NOTE | 2019-05-03 20:01 | NUR ---
PT MEDICATED WITH TYLENOL PER MD ORDER FOR C/O HEADACHE.SEE EMAR.--MARGI LANG RN
--- NOTE | 2019-05-03 23:03 | NUR ---
PT RESTING QUITELY.SHE IS TO BE ADMITTED BUT WILL NOT BE GOING UPSTAIRS UNTIL A BED IS AVAILABLE; SHE IS AWARE OF THIS. NO C/O NOW.---MARGI LANG RN
[2019-05-04 03:36] VITALS: BP 90/54
--- NOTE | 2019-05-04 03:38 | NUR ---
TOOK REPORT FROM ADRIÁN MOONEY. PT SLEEPING AT THIS TIME. MONITOR SHOWING SINUS RHYTHM. CALL LIGHT IN REACH. WILL CONTINUE TO MONITOR. MARK GALLAGHER RN.
[2019-05-04 05:00] VITALS: BP 124/74; BP 124/79
--- NOTE | 2019-05-04 05:00 | NUR ---
A 54, admitted to 5E, under the services of LANI James MD with a diagnosis of PALPITATIONS AND DIZZINESS. Chief complaint is . Patient arrived via BED from ER. Monitor applied. Initial assessment completed. Vital signs taken and recorded. LANI JAMES MD notified of admission to the unit. Orders received. See assessment for past medical history, medications and allergies. Patient and/or family oriented to unit. [facility] visitation policy reviewed. Clothing/patient valuable form completed. HARLAN FRYE
[2019-05-04] MEDS ORDERED: CILOSTAZOL100 MG PO (05:13)
[2019-05-04] MEDS ORDERED: CLARITIN10 MG PO (05:15)
--- NOTE | 2019-05-04 05:17 | NUR ---
MEDS RECONCILED AT BEDSIDE WITH PT.
[2019-05-04 08:00] VITALS: BP 130/78
--- NOTE | 2019-05-04 08:54 | NUR ---
DR MARS NOTIFIED OF NEW CONSULT FOR STRESS TEST IN AM @ 7 AM.
[2019-05-04 09:30] LABS: FREE T4 1.09 ng/dl (0.76-1.46); THYROID STIM HORMONE (HS) 2.4 uIU/ml (0.358-4.75)
--- NOTE | 2019-05-04 10:30 | NUR ---
Manager Channel in to talk to patient. Patient states lives at home with her and grandchild. There are 2 steps in the home. Physician: Dr. Trevin Akins [facility]: [facility] Home health services: has had in the past but not currently Patient's level of ADLs: INDEPENDENT Patient has working utilities: yes DME: none Follow-up physician's appointment after d/c: will be made by the hospitalist nurse director upon discharge Does patient want to access PORTAL?: no Discharge plan discussed with patient. She lives at home with her and her grandchild. She is independent in her ADLs and ambulation. Discussed home health care services and she denies any home needs at this time. When medically stable she will be discharged to home. Her will transport on discharge. TWAN FAGAN
--- NOTE | 2019-05-04 10:54 | NUR ---
DR OLGUIN ROUNDED AND SEEN PT.DR OLGUIN RECOMMENDED HOLTER MONITOR AND D/C TO HOME. MESSAGE LEFT TO RETURN MY CALL TO NOTIFY HER PER DR OLGUIN.
[2019-05-04 12:00] VITALS: BP 102/40
== END 2019-05-04 10:54 | disposition home or self-care (01) | DRG 309 ==
LOC: ED 11:01 → EDHOLD 14:56 → 5E 14:56 → EDHOLD 20:41 → 5E 05-04 04:47
PROVIDERS: Emergency Medicine; ADMIT Internal Medicine
DX: I47.1 Supraventricular tachycardia (principal); E87.2 Acidosis; R00.2 Palpitations; F17.210 Nicotine dependence, cigarettes, uncomplicated; R91.1 Solitary pulmonary nodule; F41.1 Generalized anxiety disorder; I10 Essential (primary) hypertension; G89.29 Other chronic pain; J44.9 Chronic obstructive pulmonary disease, unspecified; E78.5 Hyperlipidemia, unspecified; T43.615A Adverse effect of caffeine, initial encounter

== ENCOUNTER → 2019-06-19 | Outpatient (CLI) | payer OTHER ==
[~2019-06-19] MED LIST changes: +CILOSTAZOL100 MG PO; +CLARITIN10 MG PO; +FISH OIL DR 1,1 EACH PO; +Ipratropium Brom3 ML INH; +PREDNISONE5 MG PO; +VITAMIN D-32000 UNI1 PO
[2019-06-19 13:28] LABS: ALBUMIN 3.7 gm/dl (3.1-4.5); ALKALINE PHOSPHATASE 63 U/L (45-117); BUN 15 mg/dl (7-24); CHLORIDE 109 mmol/L (98-107); CHOLESTEROL 310 mg/dL (<200); CREATININE 0.91 mg/dL (0.55-1.02); HDL CHOLESTEROL 34 mg/dl (40-60); LDL CHOLESTEROL 238 mg/dL (9-159); POTASSIUM 3.9 mmol/L (3.5-5.1); SGOT/AST 23 IU/L (3-35); SGPT/ALT 37 U/L (12-78); SODIUM 142 mmol/L (136-145); TOTAL PROTEIN 7.4 gm/dL (6.4-8.2); TRIGLYCERIDES 192 mg/dl (<150); VLDL CHOLESTEROL 38 mg/dL (6-40)
== END | disposition home or self-care (01) ==
LOC: LAB 12:39
PROVIDERS: Family Medicine
DX: E78.00 Pure hypercholesterolemia, unspecified (principal)

== ENCOUNTER 2019-06-21 12:50 | Emergency (ER) | payer OTHER ==
[~2019-06-21] VITALS: Ht 160 cm; Wt 95.3 kg
--- NOTE | ~2019-06-21 | EKG ---
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
[~2019-06-21 12:50] MED LIST changes: -FISH OIL DR 1,1 EACH PO; -Ipratropium Brom3 ML INH; -PREDNISONE5 MG PO; -VITAMIN D-32000 UNI1 PO
[2019-06-21 13:22] LABS: BASO % 0.6 % (0.0-1.0); EOS # 0.1 10*3/uL (0.0-0.4); HEMATOCRIT 42.1 % (37.0-47.0); LYMPH # 2.1 10*3/uL (1.3-4.4); LYMPH % 38.8 % (27.0-41.0); MEAN CELL VOLUME 87.9 fl (81.0-99.0); MEAN CORPUSCULAR HGB 29.2 pg (27.0-31.0); MEAN CORPUSCULAR HGB CONC 33.3 g/dl (33.0-37.0); MEAN PLATELET VOLUME 9.7 fl (9.6-12.3); MONO # 0.3 10*3/uL (0.1-1.0); MONO % 5.1 % (3.0-9.0); NEUT # 2.9 10*3/uL (2.3-7.9); NEUT % 53.3 % (47.0-73.0); PLATELET COUNT AUTOMATED 199 10*3/uL (130-400); RED BLOOD COUNT 4.79 10*6/uL (4.10-5.10); RED CELL DISTRI WIDTH 13.3 % (0-14.5); WHITE BLOOD COUNT 5.4 10*3/uL (4.8-10.8)
[2019-06-21 13:32] LABS: ACT PARTIAL THROMBO TIME 24.4 SECONDS (20.0-32.1); INTERNATIONAL NORM RATIO 0.9 (2.0-3.5)
[2019-06-21 13:41] LABS: ALBUMIN 3.7 gm/dl (3.1-4.5); ALKALINE PHOSPHATASE 66 U/L (45-117); BUN 14 mg/dl (7-24); CHLORIDE 107 mmol/L (98-107); CREATININE 0.78 mg/dL (0.55-1.02); POTASSIUM 3.6 mmol/L (3.5-5.1); SGOT/AST 17 IU/L (3-35); SGPT/ALT 27 U/L (12-78); SODIUM 140 mmol/L (136-145); TOTAL PROTEIN 7.3 gm/dL (6.4-8.2)
[2019-06-21 13:42] LABS: TROPONIN I < 0.015 ng/ml (<0.045)
[2019-06-21] MEDS ORDERED: PREDNISONE50 MG PO (14:29)
[2019-06-21] MEDS ORDERED: Ipratropium Brom3 ML INH (14:30)
== END 2019-06-21 16:10 | disposition home or self-care (01) ==
LOC: ED 12:50
PROVIDERS: Emergency Medicine
DX: J44.1 Chronic obstructive pulmonary disease with (acute) exacerbation (principal); R60.0 Localized edema; R42 Dizziness and giddiness; R25.2 Cramp and spasm; I10 Essential (primary) hypertension; K21.9 Gastro-esophageal reflux disease without esophagitis; E66.9 Obesity, unspecified; E78.5 Hyperlipidemia, unspecified; F17.210 Nicotine dependence, cigarettes, uncomplicated; Z79.899 Other long term (current) drug therapy; Z79.82 Long term (current) use of aspirin; Z68.39 Body mass index [BMI] 39.0-39.9, adult

== ENCOUNTER 2019-06-25 08:50 | Inpatient (IN) | payer OTHER ==
[~2019-06-25] VITALS: Ht 160 cm; Wt 98.5 kg
--- NOTE | ~2019-06-25 | PR ---
[place], [place] PROGRESS NOTE NAME: JANAY ELLINGTON [facility] WITH [facility] #: [id number] UNIT #: [id number] ROOM: 526 DOCTOR: JOSE ALEJANDRO HALEY MD,KENZIE BIRTHDATE: [birth year] DOS: 06/28/2019 SUBJECTIVE: She has been noted with reduction of symptoms, shortness of breath and wheezing. However, the cough still remains. The patient has been noted episodic present different times of the day. There were no symptoms of fever or chills, cough. There were no symptoms of hemoptysis. OBJECTIVE: VITAL SIGNS: Normal temperature, respiratory rate 20, heart rate 80, blood pressure 114/59. Pulse ox saturation at rest on room air 98% saturation. HEENT: Examination shows head was atraumatic. Eyes nonicterus. NECK: Supple. CARDIOVASCULAR: S1, S2 audible. LUNGS: Noted with expiratory wheezing, which was noted unchanged moderately. There were no crackles. ABDOMEN: Soft, nontender. Bowel sounds present. EXTREMITIES: No new change. IMPRESSION: 1. The patient with acute exacerbation of chronic obstructive pulmonary disease, acute tracheobronchitis. 2. Stable pulmonary nodule was noted in the right middle lobe as well. 3. Chronic obesity. 4. Previous history of nicotine use. PLAN OF MANAGEMENT: Therapeutic bronchoscopy, planned to be done tomorrow morning. In the meantime, continuation of current therapy is in progress, will be continued with additional treatment changes, will be made based on progression of the illness. Usual care. KENZIE BLOUNT MD CM:PNTRANS 1405 1501 KENZIE HALEY MD 06/28/19 1500 interface
--- NOTE | ~2019-06-25 | WRIGHTHP ---
[place], [place] PATIENT HISTORY AND PHYSICAL EXAM NAME: JANAY ELLINGTON UNIT #: [id number] ROOM: 526 DOCTOR: KATERINE WRIGHTLANI BIRTHDATE: [birth year] DOS: HISTORY OF PRESENT ILLNESS: The patient is 54 years old. The patient comes in with complaints of cough and difficulty breathing. She was seen by Dr. Ku a few days ago and was placed on azithromycin and later on Augmentin. The patient continued to get worse without any improvement, so she was told to go to the Emergency Room. She came into the ER, was found to have significant bronchospasm and since she has failed outpatient regimen, she was admitted. Chest x-ray also showed a lingular pneumonia. She denied having any chest pains, palpitations, not have any fever or chills. PAST MEDICAL HISTORY: Significant for: 1. Hospitalization in 04/2019 with SVT. 2. Generalized anxiety disorder. 3. Benign hypertension. 4. Esophageal stricture. 5. Moderate cigarette smoker. 6. Chronic obstructive pulmonary disease. MEDICATIONS: Medications that she is currently on are breathing treatments, aspirin 81, vitamin D 2000 units daily, loratadine 10 daily, metoprolol 25 b.i.d., omeprazole 40 daily, oxybutynin 15 daily, prednisone 50 daily, ranitidine 300 mg at bedtime. SOCIAL HISTORY: Smoker of about half pack of cigarettes a day. Denies using any alcohol. 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 PHYSICAL EXAMINATION: GENERAL: She is awake and alert and oriented. VITAL SIGNS: Graphic trend shows a blood pressure of 152/102, pulse of 75, respirations 16, temperature 98.0. LUNGS: Diminished breath sounds. HEART: Regular. ABDOMEN: Obese. EXTREMITIES: Without any edema. ASSESSMENT AND PLAN: 1. The patient has underlying chronic obstructive pulmonary disease. If she does have acute exacerbation of COPD, IV steroids and maximize the bronchodilators. 2. Lingular pneumonia. IV antibiotics have been ordered. Consultation with Dr. Chester is obtained for possible bronchoscopy. 3. Lung nodule. Recheck CT scan to see whether the nodule has stabilized. 4. Benign hypertension, controlled. [place], [place] PATIENT HISTORY AND PHYSICAL EXAM NAME: JANAY ELLINGTON UNIT #: [id number] ROOM: 526 DOCTOR: LANI GARCIAS MD BIRTHDATE: [birth year] LANI GARCIAS MD CM:HISPHYS:PATIENT HISTORY AND PHYSICAL EXAMINATION 5 LANI GARCIAS MD 06/26/19 0940 interface
--- NOTE | ~2019-06-25 | PR ---
[place], [place] PROGRESS NOTE NAME: JANAY ELLINGTON [facility] #: [id number] UNIT #: [id number] ROOM: 526 DOCTOR: LANI GARCIAS MD BIRTHDATE: [birth year] DOS: 07/01/2019 SUBJECTIVE: The patient is doing about the same, does not have any new complaints. OBJECTIVE: VITAL SIGNS: Graphic trend shows blood pressure 133/76, pulse of 60, respirations 18, temperature 97.5. LUNGS: Clear. HEART: Regular. ABDOMEN: Obese, soft. EXTREMITIES: Without any edema. LABORATORY DATA: Blood cultures, no bacterial growth. Bronch cultures, no bacterial growth. Echocardiogram shows normal LV function. ASSESSMENT AND PLAN: 1. Moderate cigarette smoker, counseled. 2. Lingular pneumonia, on IV antibiotics, improvement clinically. 3. Echocardiogram shows normal left ventricular function without any left ventricular dysfunction. 4. Bronchoscopy with bronch culture showing negative, no bacterial growth. LANI GARCIAS MD CM:PNTRANS 9 8 LANI GARCIAS MD 07/01/19 0908 interface
--- NOTE | ~2019-06-25 | PR ---
[place], [place] PROGRESS NOTE NAME: JANAY ELLINGTON [facility] #: [id number] UNIT #: [id number] ROOM: 526 DOCTOR: JOSE ALEJANDRO HALEY MD,KENZIE BIRTHDATE: [birth year] DOS: 07/01/2019 PULMONARY PROGRESS NOTE SUBJECTIVE: The patient noted comfortable at this time, resting in the bed with continued improvement and resolution of the acute respiratory symptom noted, was not discharged home yesterday. OBJECTIVE: VITAL SIGNS: For the patient recorded as a normal temperature, respiratory rate 18, heart rate 67, blood pressure 132/76. Pulse oxygen saturation on room air 98% saturation. HEENT: Examination shows head was atraumatic. Eyes nonicterus. NECK: Supple. CARDIOVASCULAR: S1, S2 audible. LUNGS: Clear. ABDOMEN: Soft and nontender. Bowel sounds present. EXTREMITIES: The patient noted without any acute edema. IMPRESSION: Stable respiratory status was noted at present time with continued improvement, resolution of acute respiratory symptom noted with acute exacerbation of chronic obstructive pulmonary disease and cough. History of chronic nicotine dependence. PLAN OF MANAGEMENT: No changes in the plan of care at this time. The patient could be discharged home whenever desired by the primary care physician on oral medications. Outpatient followup suggested postdischarge in the next 2-3 weeks. KENZIE BLOUNT MD CM:PNTRANS [id number] KENZIE HALEY MD 07/01/19 1419 interface
--- NOTE | ~2019-06-25 | PR ---
[place], [place] PROGRESS NOTE [facility] [id number] UNIT #: [id number] ROOM: 526 DOCTOR: LANI GARCIAS MD BIRTHDATE: [birth year] DOS: 06/30/2019 SUBJECTIVE: The patient complains of a toothache, but otherwise okay. OBJECTIVE: VITAL SIGNS: Graphic trend shows a pressure of 126/82, pulse is 78, respirations 20, temperature 97.4. LUNGS: Clear. HEART: Regular. ABDOMEN: Obese, soft. EXTREMITIES: Without any edema. ASSESSMENT AND PLAN: 1. Lingular pneumonia, on IV antibiotics. 2. Bronchoscopy with bronch cultures so far only showing normal hernandez. Final is not finalized yet. 3. Sepsis pattern ruled out with negative blood cultures. 4. Lung nodule without much worsening in the size of the nodule. If the cultures did do not grow any bacteria, plan is to discharge her to home tomorrow. LANI GARCIAS MD CM:PNTRANS [id number] LANI GARCIAS MD 06/30/19 1102 interface
--- NOTE | ~2019-06-25 | PR ---
[place], [place] PROGRESS NOTE NAME: JANAY ELLINGTON [facility] #: [id number] UNIT #: [id number] ROOM: 526 DOCTOR: GEORGE FUNES MD BIRTHDATE: [birth year] DOS: 06/28/2019 SUBJECTIVE: The patient with chronic shortness of breath. Breathing slightly better and she is going for bronchoscopy tomorrow. OBJECTIVE: VITAL SIGNS: Blood pressure 139/97, heart rate 81 beats per minute, breathing 18 times per minute, temperature 98 degrees Fahrenheit. GENERAL APPEARANCE: The patient is alert and oriented x 3, in no visible distress. Obesity. BMI of 38.4. HEENT AND NECK: Exam within normal limits. CARDIOVASCULAR SYSTEM: Heart rate is regular in rate and rhythm. S1 and S2 normally audible. LUNGS: Clear to auscultation. ABDOMEN: Soft, nontender. No obvious organomegaly. Bowel sounds are present. EXTREMITIES: Without significant cyanosis or edema. IMPRESSION: 1. The patient with right upper lobe nodule measuring about 6.8 mm, going for bronchoscopy by Dr. Chester tomorrow. 2. Acute exacerbation of chronic obstructive pulmonary disease and acute tracheobronchitis, being treated with corticosteroids, antibiotic, oxygen. 3. Obesity with BMI of 38.4. The patient is working with Dietary. 4. History of nicotine smoke dependence in the past. 5. Vitamin D deficiency, on replacement. 6. POLLEN allergies, treated and controlled with loratadine. 7. Benign essential hypertension, treated and controlled. The patient on metoprolol. 8. Left lower lobe pneumonia, being treated with antibiotics. Dr. Chester is following. GEORGE FUNES MD CM:PNTRANS [id number] GEORGE FUNES MD 06/28/19 2334 interface
--- NOTE | ~2019-06-25 | DS ---
[place], [place] DISCHARGE SUMMARY NAME: JANAY ELLINGTON UNIT #: [id number] ROOM: 526 DOCTOR: LANI GARCIAS MD BIRTHDATE: [birth year] DOS: 07/01/2019 DIAGNOSES: 1. Acute exacerbation of chronic obstructive pulmonary disease. 2. Lingular pneumonia, resolving. 3. Moderate cigarette smoker. 4. Shortness of breath with normal echocardiogram. 5. Gastroesophageal reflux disease. 6. Tooth ache with some swelling around the right lower gum area. 7. Benign hypertension. DISCHARGE MEDICATIONS: Cipro 500 b.i.d. for 7 days; prednisone 5 b.i.d.; [place] 5 daily p.r.n., prescription was given for 5 pills; omeprazole 40 daily; aspirin 81 daily; oxybutynin 15 daily; metoprolol 25 b.i.d.; Claritin 10 daily; breathing treatments q.i.d. HOSPITAL COURSE: A 54-year-old patient comes in with complaints of difficulty breathing. Please refer to H and P for details. Chest x-ray showed right lingular pneumonia. The patient was placed on IV antibiotics with continued improvement in her symptoms with IV antibiotics. The patient was taken for bronchoscopy. Bronch cultures did not grow any bacterial growth. The patient is not having any complaints of chest pains or shortness of breath. She did complain of toothache and so has some swelling in the right lower gumline on the right side. The patient will need to be seen by dentist as an outpatient, pain medications were given. The patient is stable this morning. Plan is to discharge to home. Echocardiogram was done and it shows normal LV function. Pressures have been controlled. She is encouraged to quit smoking. PLAN: Follow up with Dr. Ku. [place], [place] DISCHARGE SUMMARY NAME: JANAY ELLINGTON UNIT #: [id number] ROOM: 526 DOCTOR: LANI GARCIAS MD BIRTHDATE: [birth year] LANI GARCIAS MD CM:DISCHARG 1 6 LANI GARCIAS MD 07/01/19 0916 interface
--- NOTE | ~2019-06-25 | PROC NOTE ---
[place], [place] PROCEDURE NOTE [id number] UNIT #: [id number] ROOM: 526 DOCTOR: JOSE ALEJANDRO HALEY MD,KENZIE BIRTHDATE: [birth year] DOS: 06/29/2019 PREOPERATIVE DIAGNOSIS: The patient with severe nonproductive cough, wheezing with maximal medical management. POSTOPERATIVE DIAGNOSIS: Removal of multiple plugs of the mucus from the endobronchial tree subsegment bilaterally without difficulty. COMPLICATIONS: None. PROCEDURE DESCRIPTION: Informed consent obtained with the patient. The patient brought to the OR and placed in supine position. Conscious sedation administered by the Anesthesia Department. After achieving appropriate sedation, airway introduced into the mouth. Bronchoscope advanced to the airway into the laryngeal area. Epiglottis and vocal cords were seen. Vocal cords moving with symmetrical movements. The bronchoscope advanced to and vocal cords and tracheal lumen, noted with moderate amount of thick mucoid secretions. Estefany noted sharp. Right upper, right middle, right lower, left upper, lingula, lower lobe bronchi all examined. The patient noted with moderate plugs of the mucus, which are noted greater on the left endobronchial tree than the right endobronchial tree. All secretions suctioned out clear with normal saline wash and sent for culture. Procedure well tolerated by the patient without any difficulty. Postoperative findings were discussed with the patient's family members. KENZIE BLOUNT MD CM:PROCNOTE:PROCEDURE NOTE 0930 0002 KENZIE HALEY MD
--- NOTE | ~2019-06-25 | PR ---
[place], [place] PROGRESS NOTE NAME: JANAY ELLINGTON [facility] #: [id number] UNIT #: [id number] ROOM: 526 DOCTOR: JOSE ALEJANDRO HALEY MD,KENZIE BIRTHDATE: [birth year] DOS: 06/29/2019 SUBJECTIVE: The patient was seen and examined. She has been noted similar symptoms, nonproductive cough with some chest pain at times related to the cough. Her shortness of breath and wheezing were declining and improving. The patient denies symptoms of fever or chills. Denies symptoms of diplopia, nausea, vomiting, or diarrhea. Remaining systems were reviewed. They were noted all negative. OBJECTIVE: VITAL SIGNS: Recorded. Normal temperature, respiratory rate 20, heart rate 72, blood pressure 145/76. The pulse oxygen saturation on room air 96% saturation. HEENT: Head was atraumatic. Eyes nonicterus. NECK: Supple. CARDIOVASCULAR: S1, S2 audible. LUNGS: Noted without any crackles. Expiratory wheezing was present, which was mild at the present time. ABDOMEN: Soft, nontender. Bowel sounds present. EXTREMITIES: No acute change. IMPRESSION: 1. The patient with mucus impaction suspected ongoing acute exacerbation of chronic obstructive pulmonary disease. 2. History of bronchial asthma. 3. History of chronic obesity. 4. Stable pulmonary nodule in the right lung. PLAN OF MANAGEMENT: ____ bronchoscopy already noted n.p.o. Any modification of treatment necessary will be done after the bronchoscopy. Usual care. KENZIE BLOUNT MD CM:PNTRANS 0933 KENZIE HALEY MD 06/30/19 0010 interface
--- NOTE | ~2019-06-25 | PR ---
[place], [place] PROGRESS NOTE NAME: JANAY ELLINGTON [facility] #: [id number] UNIT #: [id number] ROOM: 526 DOCTOR: JOSE ALEJANDRO HALEY MD,KENZIE BIRTHDATE: [birth year] DOS: 06/30/2019 SUBJECTIVE: The patient was noted comfortable at this time, resting on the bed this morning of assessment, has not been reported any symptoms of chest pain, fever or chills. The coughing has improved significantly. The wheezing was resolving, but not completely improved. Shortness of breath has improved. Post-bronchoscopy, there were no complications noted, improvement in overall symptoms noted. OBJECTIVE: VITAL SIGNS: Normal temperature, respiratory rate 18, heart rate of 88, blood pressure 122/63. The pulse oxygen saturation on room air was 97% saturation. HEENT: Examination shows head was atraumatic. Eyes nonicterus. NECK: Supple. CARDIOVASCULAR: S1, S2 is audible. LUNGS: Noted occasional wheezing, no crackles. ABDOMEN: Soft, nontender. Bowel sounds present. EXTREMITIES: Chronic obesity. IMPRESSION: Stable respiratory status with favorable improvement post-bronchoscopy, no any symptoms of cough, wheezing and others. LABORATORY DATA: The cultures of the bronchial washing noted as normal hernandez. Gram stain, few white blood cells, rare gram-positive cocci in pairs. PLAN OF MANAGEMENT: The patient could be considered for home discharge on the oral medication whenever desired by the primary care physician. No additional changes in the treatment at this time will be necessary. Supportive care. KENZIE BLOUNT MD CM:PNTRANS 1029 1542 KENZIE HALEY MD 06/30/19 1541 interface
--- NOTE | ~2019-06-25 | CON ---
[place], [place] REPORT OF CONSULTATION NAME: JANAY ELLINGTON [facility] #: [id number] UNIT #: [id number] ROOM: 526 DOCTOR: KENZIE LOVING MD BIRTHDATE: [birth year] DOS: 06/26/2019 PULMONARY CONSULTATION, EVALUATION AND MANAGEMENT CONSULTATION REQUESTED BY: Dr. Hilda Bird. REASON FOR CONSULTATION: For assessment of ongoing symptoms of nonproductive cough and others. HISTORY OF PRESENT ILLNESS: This is a 54-year-old white female patient who was admitted under the care of Dr. Hilda Bird on 06/25/2019. The patient has been reported with symptoms of chest congestion with coughing, which has been present over 2 weeks and not resolving with an outpatient treatment. She has been seen by her primary care physician, Dr. Tran. She has been also known with history of pulmonary nodule, which has been noted somewhat enlarged in the past few months. The patient has been admitted to the hospital and currently managed for acute exacerbation of COPD and bronchial asthma. She denies symptoms of chest pain with that. The cough has been noted excessive several times. The cough has been noted severe, nonproductive, inability to expectorate sputum with severe hard cough. She denies symptoms of hemoptysis. REVIEW OF SYSTEMS: CONSTITUTIONAL SYMPTOMS: Fatigue and tiredness noted without any symptoms of fever or chills. EYES: Denies any burning, redness, or tenderness. EARS, NOSE, THROAT SYMPTOMS: No sore throat, hoarseness, otalgia, postnasal drainage or epistaxis. CARDIOVASCULAR SYSTEM: Denies angina pain, edema, or pain of the lower extremities. GASTROINTESTINAL SYMPTOMS: Denies dysphagia, nausea, vomiting, diarrhea, abdominal pain, hematemesis, melena, or hematochezia. SKIN: Denies abnormal lesions or rashes. MUSCULOSKELETAL: Denies acute joint pain, redness, or tenderness. Remaining systems were reviewed with the patient, they were noted all negative. PAST MEDICAL HISTORY: Known with history of: 1. COPD. 2. Essential hypertension. 3. Gastroesophageal reflux. 4. Hypercholesterolemia. 5. Urethral diverticulum. 6. Chronic recurrent bronchitis. SOCIAL HISTORY: She lives at home. Denies history of alcohol or illicit drug use. She has been noted tobacco use, half a pack of cigarettes per day, started as a teenager actively. She is , has 3 children. PAST SURGICAL HISTORY: 1. Cardiac catheterization noted negative for any coronary artery disease. [place], [place] REPORT OF CONSULTATION NAME: JANAY ELLINGTON [facility] #: [id number] UNIT #: [id number] ROOM: 526 DOCTOR: KENZIE LOVING MD BIRTHDATE: [birth year] 2. Cystoscopy. 3. Appendectomy. 4. Tubal ligation. 5. Cholecystectomy. 6. T and A. FAMILY HISTORY: The patient reported for coronary artery disease. MEDICATIONS: The current medications, which have been actively administered were noted as use of oxybutynin chloride, fish oil, loratadine, vitamin D, aspirin, omeprazole, Mucinex, Solu-Medrol 30 mg q.8 hours, DuoNeb q.4 hours, Rocephin, and some other p.r.n. meds. DRUG ALLERGIES: Noted no known drug allergies. PHYSICAL EXAMINATION: GENERAL: A 54-year-old female patient currently noted to be awake and alert without any distress. Height of 5 feet 3 inches, weight of 217 pounds, BMI 38.4. VITAL SIGNS: For the patient which were recorded normal temperature, respiratory rate 18-20, heart rate 81, blood pressure 122/63-118/58. The pulse oxygen saturation recorded on room air 98% saturation. HEENT: Shows head was atraumatic. Eyes nonicterus. NECK: Supple. CARDIOVASCULAR: S1, S2 audible. LUNGS: Noted without any crackles. Diffuse expiratory wheezing was present. Diminished breath sounds. ABDOMEN: Soft, nontender. Bowel sounds present. EXTREMITIES: Noted without acute edema, clubbing, cyanosis. MUSCULOSKELETAL: Noted without any acute deformities. CENTRAL NERVOUS SYSTEM: Noted grossly intact. There were no focal deficits. Cranial nerves 2-12 intact. LABORATORY DATA: CBC that was done on this admission on 06/25/2019 was noted 2% eosinophils. WBC count, hemoglobin and hematocrit and platelet count were normal. PT/PTT on 06/21/2019 was normal. CMP done on 06/19/2019 is normal BUN and creatinine. The CMP that was done on 06/25/2019; BUN 20, creatinine was normal. CBC as previously stated would be done on 06/21/2019 to make the change in the date. CBC on 06/25/2019; WBC count normal, hemoglobin, hematocrit, and platelet count were normal and eosinophils at that time were noted as 0.3%. Chest x-ray, 1 view, which was done, reviewed from the PACS images was noted with a small area of atelectasis noted in the possible left lingular lobe, left upper lobe. CT scan of the chest was also done that was reviewed. CT scans of the chest were reviewed for the patient. The first CT scan was done on 04/07/2019, was noted about 7-8 mm nodule, difficult to measure in the right upper lobe. Similar nodule was seen appeared to be possibly unchanged with current new CT scan of the chest. The nodule could be measured about 7-8 mm with the largest dimension. A small area of atelectasis noted in the left lingula, which was visible on the chest x-ray. Nonspecific mild lymphadenopathy also noted in the mediastinum. The blood culture, which was done on admission [place], [place] REPORT OF CONSULTATION NAME: JANAY ELLINGTON UNIT #: [id number] ROOM: 526 DOCTOR: KENZIE LOVING MD BIRTHDATE: [birth year] does not show any abnormal bacterial growth. In the CT scan of the abdomen finding, evidence of hiatal hernia. IMPRESSION: 1. The patient who has been currently admitted to the hospital with chronic nicotine dependence presented with acute exacerbation of chronic obstructive pulmonary disease and bronchial asthma, combined exacerbation from admission, being sick for 2 weeks. 2. Severe mucus impaction was considered. 3. The patient with evidence of pulmonary nodule in the right upper lung grossly noted and change in size still noted, subcentimeter in size. 4. History of chronic low-grade nicotine abuse as half pack of cigarettes per day noted several years. 6. Chronic severe obesity as well. PLAN OF TREATMENT: Continue treatment as noninvasive management. Consideration for use of the Mucinex, flutter valve, and bronchodilators. The patient would not show any further improvement in the next 24-48 hours. She will be assessed for the fiberoptic bronchoscopy to be done. As for the pulmonary nodule is concerned, further monitoring would be advised for the patient at this time and possibly early malignancy can be excluded unfortunately because of the size of the nodule. No further assessment at this time could be done for this patient such as a PET scan because of the low sensitivity with a nodule less than 10 mm. Other plan of therapy and care plan to be continued as ongoing. Usual care. Supportive plan of management and therapies. KENZIE BLOUNT MD CM:CONSTR:REPORT OF CONSULTATION 1717 06/27/19 0004 interface
--- NOTE | ~2019-06-25 | PR ---
[place], [place] PROGRESS NOTE NAME: JANAY ELLINGTON [facility] #: [id number] UNIT #: [id number] ROOM: 526 DOCTOR: LANI GARCIAS MD BIRTHDATE: [birth year] DOS: SUBJECTIVE: The patient is about the same, does not have any new complaints. She still has a cough and quite rhonchorous. OBJECTIVE: VITAL SIGNS: Blood pressure is 122/63, pulse of 80, respirations 16, temperature 97.5. LUNGS: Diminished breath sounds. Scattered wheezes and rhonchi. HEART: Regular. ABDOMEN: Obese, soft, nontender. EXTREMITIES: Without any edema. CT scan shows atelectatic changes as well as nodules and opacities and recommendation is to do a PET scan as an outpatient. ASSESSMENT AND PLAN: 1. Acute tracheobronchitis with possibility of early left lower lobe lingular pneumonia, on IV antibiotics. We will see whether Dr. Chester would agree on a bronchoscopy for this patient. 2. Moderate cigarette smoker, counseled. LANI GARCIAS MD CM:PNTRANS 1014 LANI GARCIAS MD 06/26/19 1013 interface
--- NOTE | ~2019-06-25 | PR ---
[place], [place] PROGRESS NOTE NAME: JANAY ELLINGTON [facility] #: [id number] UNIT #: [id number] ROOM: 526 DOCTOR: GEORGE FUNES MD BIRTHDATE: [birth year] DOS: 06/27/2019 SUBJECTIVE: The patient is still somewhat short of breath and is scheduled for a bronchoscopy on Saturday. OBJECTIVE: VITAL SIGNS: Blood pressure 141/76, heart rate 74 beats per minute, breathing 20 times per minute, temperature 98 degrees Fahrenheit. Obesity, BMI of 38.4. GENERAL APPEARANCE: The patient is alert and oriented x 3, in no visible distress. HEENT AND NECK: Exam within normal limits. CARDIOVASCULAR SYSTEM: Heart rate is regular in rate and rhythm. S1 and S2 normally audible. LUNGS: Clear to auscultation. ABDOMEN: Soft, nontender. No obvious organomegaly. Bowel sounds are present. EXTREMITIES: Without significant cyanosis or edema. IMPRESSION AND PLAN: 1. Acute exacerbation of chronic obstructive pulmonary disease and left lower lobe pneumonia, being treated with antibiotics, Dr. Nemo mims and bronchoscopy scheduled on Saturday. 2. Nicotine smoke dependence, the patient encouraged to stop smoking cigarettes. 3. Benign essential hypertension, treated and controlled with metoprolol. 4. Urinary incontinence, treated with oxybutynin. 5. POLLEN ALLERGIES, treated and controlled with loratadine. 6. Vitamin D deficiency, replaced with supplements. GEORGE FUNES MD CM:PNTRANS 1515 0 GEORGE FUNES MD 06/28/19209 interface
--- NOTE | ~2019-06-25 | EKG ---
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[id number] Requested By: LISA REYEZ Order Number: [id number] Reading MD: Elijah Vivar Measurements Intervals [place] Rate: 70 P: 18 MI: 175 QRS: 4 QRSD: 78 T: 8 QT: 377 QTc: 407 Interpretive Statements Sinus rhythm Low voltage, precordial leads Abnormal R-wave progression, early transition LVH by voltage Baseline wander in lead(s) V2 Compared to ECG 06/21/2019 12:57:26 Right ventricular hypertrophy no longer present T-wave abnormality no longer present Electronically Signed On 06-26-2019 7:40:02 PST by Elijah Vivar CM:EKGRPT:ELECTROCARDIOGRAM REPORT [id number] LISA TOLEDO DRAFT REPORT LISA REYEZ MD
--- NOTE | ~2019-06-25 | PR ---
[place], [place] PROGRESS NOTE NAME: JANAY ELLINGTON [facility] #: [id number] UNIT #: [id number] ROOM: 526 DOCTOR: LANI GARCIAS MD BIRTHDATE: [birth year] DOS: 06/29/2019 SUBJECTIVE: The patient is awaiting a bronchoscopy. OBJECTIVE: VITAL SIGNS: Graphic trend shows a pressure 145/76, pulse of 73, respirations 14, temperature 97.8. LUNGS: Diminished breath sounds. Clear this morning. HEART: Regular. ABDOMEN: Obese, soft, nontender. EXTREMITIES: Without any edema. ASSESSMENT AND PLAN: 1. Right upper lobe nodule, which has remained unchanged from since the last CT scans. 2. Atelectasis of the lower lobes with possibility of lingular pneumonia, the patient is on IV antibiotics. 3. Sepsis pattern ruled out with negative cultures. 4. Moderate cigarette smoker. Encouraged to quit smoking. 5. Chronic obstructive pulmonary disease. Maximize bronchodilators at discharge. LANI GARCIAS MD CM:PNTRANS [id number] LANI GARCIAS MD 06/29/19 1028 interface
--- NOTE | ~2019-06-25 | PR ---
[place], [place] PROGRESS NOTE NAME: JANAY ELLINGTON UNIT #: [id number] ROOM: 526 DOCTOR: KENZIE LOVING MD BIRTHDATE: [birth year] DOS: 06/27/2019 SUBJECTIVE: The patient noted comfortable at this time, resting on the bed this morning of assessment with severe coughing, chest congestion was noted, which has not been improved. Denies symptoms of fever or chills. Denies symptoms of hemoptysis. Denies any headache or diplopia. Denies symptoms of nausea, vomiting, diarrhea, abdominal pain, hematemesis, or melena. Remaining systems were reviewed, noted all negative. OBJECTIVE: VITAL SIGNS: Normal temperature, respiratory rate 20, heart rate 81, blood pressure 140/78. Pulse ox saturation at rest on room air is 96% saturation. HEENT: Examination shows head was atraumatic. Eyes nonicterus. NECK: Supple. CARDIOVASCULAR: S1, S2 audible. LUNGS: Noted without any wheeze or crackles. ABDOMEN: Soft, nontender. Bowel sounds present. EXTREMITIES: The patient was noted without any edema, clubbing, or cyanosis. MUSCULOSKELETAL: Noted without any acute deformities. VISIBLE SKIN: No lesions or rashes. LABORATORY DATA: There were no labs done today. IMPRESSION: 1. The patient with ongoing acute severe exacerbation of chronic obstructive pulmonary disease and bronchial asthma, nonproductive cough, partially improved yesterday. 2. Stable pulmonary nodule noted in the right lung as well, would not require any intervention. 3. The patient with chronic obesity as well. 4. History of tobacco use as well. PLAN OF MANAGEMENT: No changes in plan of management at this time. Continue corticosteroids, which were ordered yesterday therapy, plan of management and care. Supportive care and other therapy to be continued. The bronchoscopy was assessed and planned to be done on Saturday morning because of severe nonproductive cough, impaction of the mucus. Risk and benefits of procedure were discussed with the patient and she agreed for the procedure. [place], [place] PROGRESS NOTE NAME: JANAY ELLINGTON UNIT #: [id number] ROOM: 526 DOCTOR: KENZIE LOVING MD BIRTHDATE: [birth year] KENZIE BLOUNT MD CM:PNTRANS [id number] KENZIE HALEY MD 06/27/19 1835 interface
[~2019-06-25 08:50] MED LIST changes: +Ipratropium Brom3 ML INH
[2019-06-25 08:53] VITALS: BP 152/102
[2019-06-25] MEDS ORDERED: FISH OIL DR 1,1 EACH PO (09:00)
[2019-06-25] MEDS ORDERED: VITAMIN D-32000 UNI1 PO (09:00)
[2019-06-25 09:05] VITALS: BP 130/66
[2019-06-25 09:30] LABS: BASO % 0.4 % (0.0-1.0); EOS % 0.3 % (1.0-4.0); HEMATOCRIT 41.3 % (37.0-47.0); HEMOGLOBIN 13.5 g/dl (12.0-16.0); LYMPH # 1.6 10*3/uL (1.3-4.4); LYMPH % 22.6 % (27.0-41.0); MEAN CELL VOLUME 88.1 fl (81.0-99.0); MEAN CORPUSCULAR HGB 28.8 pg (27.0-31.0); MEAN CORPUSCULAR HGB CONC 32.7 g/dl (33.0-37.0); MONO # 0.3 10*3/uL (0.1-1.0); MONO % 3.6 % (3.0-9.0); NEUT # 5.3 10*3/uL (2.3-7.9); NEUT % 72.4 % (47.0-73.0); PLATELET COUNT AUTOMATED 231 10*3/uL (130-400); RED BLOOD COUNT 4.69 10*6/uL (4.10-5.10); RED CELL DISTRI WIDTH 13.4 % (0-14.5); WHITE BLOOD COUNT 7.3 10*3/uL (4.8-10.8)
[2019-06-25 09:40] LABS: ACT PARTIAL THROMBO TIME 22.5 SECONDS (20.0-32.1); INTERNATIONAL NORM RATIO 0.9 (2.0-3.5)
[2019-06-25 09:47] LABS: ALBUMIN 3.5 gm/dl (3.1-4.5); ALKALINE PHOSPHATASE 56 U/L (45-117); BUN 20 mg/dl (7-24); CHLORIDE 109 mmol/L (98-107); CREATININE 0.87 mg/dL (0.55-1.02); POTASSIUM 3.6 mmol/L (3.5-5.1); SGOT/AST 13 IU/L (3-35); SGPT/ALT 22 U/L (12-78); SODIUM 141 mmol/L (136-145); TROPONIN I < 0.015 ng/ml (<0.045)
[2019-06-25 11:30] VITALS: BP 126/74
--- NOTE | 2019-06-25 11:30 | NUR ---
A 54, admitted to 5E, under the services of LANI James MD with a diagnosis of COPD EXACERBATION. Chief complaint is NONPRODUCTIVE COUGH X2 WEEKS. Patient arrived via wheel chair from ER. Monitor applied. Initial assessment completed. Vital signs taken and recorded. LANI JAMES MD notified of admission to the unit. Orders received. See assessment for past medical history, medications and allergies. Patient and/or family oriented to unit. [facility] visitation policy reviewed. Clothing/patient valuable form completed. ARSENIO FELIX
--- NOTE | 2019-06-25 13:35 | NUR ---
DR. BLOUNT NOTIFIED OF CONSULT.
[2019-06-25 16:00] VITALS: BP 113/59
[2019-06-25 20:00] VITALS: BP 118/58
[2019-06-25 20:58] VITALS: BP 108/60
--- NOTE | 2019-06-25 21:01 | NUR ---
PT C/O COUGH AND STATES THAT CEPACOL HELPS FOR A LITTLE BIT BUT THEN THE COUGH/DISCOMFORT THAT THE COUGH CAUSES RETURNS. PT REQUEST SOMETHING ELSE FOR COUGH AND REQUESTS SOEMTHING TO HELP HER SLEEP. DR GARCIAS NOTIFIED AND NEW ORDERS RECEIVED FOR HYCODAN 5ML BID PRN AND AMBIEN 5 MG QHS PRN. PATIENT NOTIFIED OF NEW ORDERS AND INFORMED THAT MEDICATIONS WILL BE GIVEN WHEN ABLE TO PULL FROM [facility].
--- NOTE | 2019-06-25 21:52 | NUR ---
PT GIVEN HYCODAN AND AMBIEN 5 MG PO FOR C/O COUGH AND INSOMNIA. WILL MONITOR FOR EFFECTIVENESS. PT LYING IN BED AT THIS TIME. NO OTHER S/S OF DISTRESS. SAFETY MEASURES IN PLACE. CALL LIGHT IN REACH.
--- NOTE | 2019-06-25 22:52 | NUR ---
BOLA AND IVNA EFFECTIVE PER PT.
[2019-06-26] VITALS: BP 122/63
--- NOTE | 2019-06-26 05:02 | NUR ---
PT GIVEN CEPACOL FOR C/O COUGH. WILL MONITOR FOR EFFECTIVENESS. ALL OTHER AM MEDICATIONS GIVEN AT THIS TIME. PT DENIES NEEDING ANYTHING ELSE. CALL LIGHT IN REACH.
[2019-06-26 08:00] VITALS: BP 118/58
--- NOTE | 2019-06-26 09:00 | NUR ---
Extrusion Press Adjuster in to talk to patient. Patient states lives at home with her and grandchild. There are 2 steps in the home. Physician: Dr. Sylvester Ku [facility] services: has had in the past but not currently Patient's level of ADLs: INDEPENDENT Patient has working utilities: yes DME: nebulizer Follow-up physician's appointment after d/c: she prefers to make her own follow up appt after discharge Does patient want to access PORTAL?: no Discharge plan discussed with patient. She lives at home with her and her grandchild. She is independent in her ADLs and ambulation. Discussed home health care services and she denies any home needs at this time. When medically stable she will be discharged to home. Her will provide transportation on discharge. TWAN FAGAN
--- NOTE | 2019-06-26 09:22 | NUR ---
PT RESTING IN BED. NO DISTRESS NOTED. WILL MONITOR
[2019-06-26 12:00] VITALS: BP 107/61
[2019-06-26 16:00] VITALS: BP 124/74
[2019-06-26 20:00] VITALS: BP 114/61
--- NOTE | 2019-06-26 20:03 | NUR ---
PT RESTING IN BED AT THIS TIME. RESPIRATIONS EASY AND UNLABORED ON ROOM AIR. PT HAS NO COMPLAINTS AT THIS TIME. PLEASANT AND TALKATIVE WITH STAFF. PT UPDATES NURSE ON CARE RECEIVED BY DR/NURSES THROUGHOUT THE DAY. HOB ELEVATED, CALL LIGHT IN REACH.
--- NOTE | 2019-06-26 21:28 | NUR ---
ASSESSMENT COMPLETE ON PT AT THIS TIME. PT C/O HARSH,NONPRODUCTIVE COUGH-HEARD UPON ASSESSMENT. EXPIRATORY WHEEZES HEARD UPON AUSCULTATION. PT REQUESTS SOMETHING FOR COUGH AND SOMETHING TO HELP HER SLEEP. HYCODAN AND AMBIEN GIVEN PER PRN ORDERS ON EMAR. ALL SAFETY MEASURES IN PLACE, HOB ELEVATED. CALL LIGHT IN REACH.
--- NOTE | 2019-06-26 22:28 | NUR ---
BOLA AND IVAN EFFECTIVE AT THIS TIME.
[2019-06-27] VITALS: BP 129/66
--- NOTE | 2019-06-27 | NUR ---
PT RESTING IN BED. RESPIRAITONS EASY AND UNLABORED ON ROOM AIR. NO S/S OF DISTRESS NOTED. CALL LIGHT IN REACH.
--- NOTE | 2019-06-27 05:30 | NUR ---
AM MEDICATIONS GIVEN AT THIS TIME. PT STATES THAT SHE IS FEELING MUCH BETTER TODAY THAN YESTERDAY. CALL LIGHT IN REACH.
--- NOTE | 2019-06-27 07:10 | NUR ---
MEDICATED WITH PRN HYCODAN AND CEPOCAL PER ORDERS AND REQUEST.
[2019-06-27 08:00] VITALS: BP 140/78
--- NOTE | 2019-06-27 08:00 | NUR ---
CEPOCAL AND COUGH SYRUP HELPED.
[2019-06-27 12:00] VITALS: BP 141/76
[2019-06-27 16:00] VITALS: BP 109/85
--- NOTE | 2019-06-27 19:30 | NUR ---
TOOK OVER CARE OF PT AT THIS TIME. PT SITTING UP IN BED TALKING WITH A FRIEND. PT PLEASANT AND TALKATIVE. PT DENIES NEEDING ANYTHING AT THIS TIME. RESPIRATIONS EASY AND UNLABORED WITH NO S/S OF DISTRESS NOTED. ALL NEEDS MET. SAFETY MEASURES IN PLACE. CALL LIGHT IN REACH.
[2019-06-27 20:00] VITALS: BP 118/59
--- NOTE | 2019-06-27 21:07 | NUR ---
PT GIVEN HYCODAN AND AMBIEN AT THIS TIME PER PT REQUEST FOR NON PRODUCTIVE COUGH AND RESTLESSNESS/INSOMNIA. ALL OTHER HS MEDICATIONS GIVEN AT THIS TIME. BLOOD PRESSURE WNL. ASSESSMENT COMPLETE. EXPIRATORY WHEEZE HEARD UPON AUSCULTATION. NO OTHER ABNORMALITIES NOTED. POX WNL. PT DENIES NEEDING ANYTHING ELSE. HOB ELEVATED. BED LOWEST POSITION WITH WHEELS LOCKED. CALL LIGHT IN REACH.
--- NOTE | 2019-06-27 22:07 | NUR ---
JOYCE EFFECTIVE. PT SLEEPING AT THIS TIME. WILL CONTINUE TO MONITOR. RESPIRATIONS EASY AND UNLABORED. CALL LIGHT IN REACH.
[2019-06-28] VITALS: BP 131/72
--- NOTE | 2019-06-28 | NUR ---
PT RESTING IN BED. RESPIRAIIONS EASY AND UNLABORED ON ROOM AIR. NO COUGHING HEARD AT THIS TIME. SAFETY MEASURES IN PLACE FOR PT, CALL LIGHT IN REACH.
[2019-06-28 08:00] VITALS: BP 130/86
[2019-06-28 12:00] VITALS: BP 114/59
[2019-06-28 16:00] VITALS: BP 139/97
--- NOTE | 2019-06-28 19:28 | NUR ---
PATIENT RESTING IN BED WITH NO NEEDS MADE. WATCHING TV. DENIES SHORTNESS OF BREATH. BED IN LOWEST POSITION, CALL LIGHT IN REACH
[2019-06-28 20:00] VITALS: BP 130/75
[2019-06-29] VITALS (8 sets, daily range): BP systolic 101–145; BP diastolic 41–76
--- NOTE | 2019-06-29 10:30 | NUR ---
Plaster Tender in to see patient. No new needs or request at this time. She denies any home needs. When medically stable she will be discharged to home. Per multidisciplinary discharge planning meeting she had a bronchoscopy this morning.
--- NOTE | 2019-06-29 21:45 | NUR ---
PATIENT MEDICATED WITH TODAY'S MORNING PRILOSEC PER REQUEST FOR C/O HEARTBURN AND NOT GETTING HER DOSE TODAY DUE TO BEING NPO FOR PROCEDURE. ALSO MEDICATED WITH PRN AMBIEN FOR C/O SLEEPLESSNESS. WILL MONITOR
[2019-06-30] VITALS: BP 113/67
[2019-06-30 08:00] VITALS: BP 122/63; BP 126/82
--- NOTE | 2019-06-30 08:05 | NUR ---
MEDICATED WITH PRN PO TYLENOL FOR C/O TOOTACHE RT LOWER JAW.
--- NOTE | 2019-06-30 09:20 | NUR ---
PRN PO TYLENOL INEFFECTIVE; MEDICATED AT THIS TIME WITH PRN PO NORCO FOR TOOTHACHE PAIN.
--- NOTE | 2019-06-30 10:30 | NUR ---
Textile Machinery Instructor in to see patient. No new needs or request at this time. She denies any home needs. When medically stable she will be discharged to home. Per multidisciplinary discharge planning meeting her chest x-ray showed a lingular pneumonia which is being treated with rocephin and Dr. Chester is following.
[2019-06-30 12:00] VITALS: BP 118/50
--- NOTE | 2019-06-30 13:55 | NUR ---
IV started left forearm with #22 angiocath after 1 attempts. The IV site was prepped with Chloraprep. Heparin lock attached. Sterile dressing applied. Patient tolerated precedure well. Procedure performed according to [facility] policy & procedure. TYREL BIRCH
[2019-06-30 16:00] VITALS: BP 106/61
[2019-06-30 17:06] LABS: ACID FAST SPEC PROCESSING Concentration (.)
--- NOTE | 2019-06-30 17:07 | NUR ---
MEDICATED WITH PRN PO NORCO FOR RIGHT LOWER JAW/TOOTHACHE PAIN.
[2019-06-30 20:00] VITALS: BP 101/72
[2019-07-01] VITALS: BP 101/54
[2019-07-01 08:00] VITALS: BP 133/76
[2019-07-01] MEDS ORDERED: CIPRO500 MG PO (08:57)
[2019-07-01] MEDS ORDERED: PREDNISONE5 MG PO (08:57)
[2019-07-01] MEDS ORDERED: NORCO 5-325 TA1 EACH PO (08:57)
--- NOTE | 2019-07-01 09:59 | NUR ---
Discharge instructions reviewed with patient/family. Patient receptive and verbalizes understanding. Follow-up care arranged. Written instructions given to patient/family. HELLEN MURRAY
== END 2019-07-01 09:59 | disposition home or self-care (01) | DRG 140 ==
LOC: ED 08:50 → 5E 10:26 → EDHOLD 10:26 → 5E 11:15
PROVIDERS: Emergency Medicine; Internal Medicine Critical Care Medicine; ADMIT Internal Medicine
PROC: 0B998ZZ Drainage of Lingula Bronchus, Via Natural or Artificial Opening Endoscopic (ICD-10-PCS; principal; 2019-06-29)
PROC: 0B948ZZ Drainage of Right Upper Lobe Bronchus, Via Natural or Artificial Opening Endoscopic (ICD-10-PCS; 2019-06-29)
PROC: 0B988ZZ Drainage of Left Upper Lobe Bronchus, Via Natural or Artificial Opening Endoscopic (ICD-10-PCS; 2019-06-29)
PROC: 0B958ZZ Drainage of Right Middle Lobe Bronchus, Via Natural or Artificial Opening Endoscopic (ICD-10-PCS; 2019-06-29)
PROC: 0B938ZZ Drainage of Right Main Bronchus, Via Natural or Artificial Opening Endoscopic (ICD-10-PCS; 2019-06-29)
PROC: 0B978ZZ Drainage of Left Main Bronchus, Via Natural or Artificial Opening Endoscopic (ICD-10-PCS; 2019-06-29)
PROC: 0B968ZZ Drainage of Right Lower Lobe Bronchus, Via Natural or Artificial Opening Endoscopic (ICD-10-PCS; 2019-06-29)
PROC: 0B9B8ZZ Drainage of Left Lower Lobe Bronchus, Via Natural or Artificial Opening Endoscopic (ICD-10-PCS; 2019-06-29)
PROC: 0B918ZZ Drainage of Trachea, Via Natural or Artificial Opening Endoscopic (ICD-10-PCS; 2019-06-29)
DX: J44.1 Chronic obstructive pulmonary disease with (acute) exacerbation (principal); J44.0 Chronic obstructive pulmonary disease with (acute) lower respiratory infection; J18.9 Pneumonia, unspecified organism; F41.1 Generalized anxiety disorder; J20.9 Acute bronchitis, unspecified; I10 Essential (primary) hypertension; F17.210 Nicotine dependence, cigarettes, uncomplicated; K21.9 Gastro-esophageal reflux disease without esophagitis; E78.00 Pure hypercholesterolemia, unspecified; E66.9 Obesity, unspecified; E55.9 Vitamin D deficiency, unspecified; J30.1 Allergic rhinitis due to pollen; J98.11 Atelectasis; R91.1 Solitary pulmonary nodule; E78.5 Hyperlipidemia, unspecified; Z90.49 Acquired absence of other specified parts of digestive tract; Z79.82 Long term (current) use of aspirin; Z79.899 Other long term (current) drug therapy; Z91.81 History of falling; Z87.19 Personal history of other diseases of the digestive system; Z87.440 Personal history of urinary (tract) infections; Z90.89 Acquired absence of other organs; Z98.51 Tubal ligation status; Z82.49 Family history of ischemic heart disease and other diseases of the circulatory system; Z80.9 Family history of malignant neoplasm, unspecified; Z83.438 Family history of other disorder of lipoprotein metabolism and other lipidemia; Z68.38 Body mass index [BMI] 38.0-38.9, adult

== ENCOUNTER 2019-10-05 11:24 | Inpatient (IN) | payer OTHER ==
[~2019-10-05] VITALS: Ht 160 cm; Wt 102.6 kg
[~2019-10-05 11:24] MED LIST changes: +FISH OIL DR 1,1 EACH PO; +PREDNISONE5 MG PO; +VITAMIN D-32000 UNI1 PO
[2019-10-05 11:33] VITALS: BP 154/89
[2019-10-05 12:45] VITALS: BP 144/80
[2019-10-05 13:15] LABS: BILIRUBIN NEGATIVE (NEGATIVE); BLOOD 1+ (NEGATIVE); CLARITY CLOUDY (CLEAR); COLOR YELLOW (YELLOW); GLUCOSE NEGATIVE (NEGATIVE); KETONE NEGATIVE (NEGATIVE)
[2019-10-05 13:16] LABS: LEUKO ESTERASE NEGATIVE (NEGATIVE); NITRITE NEGATIVE (NEGATIVE); UROBILINOGEN 0.2 E.U./dl (0.2-1.0)
[2019-10-05 13:21] LABS: BACTERIA TRACE
[2019-10-05 13:22] LABS: BASO % 0.6 % (0.0-1.0); EOS # 0.1 10*3/uL (0.0-0.4); EOS % 1.1 % (1.0-4.0); HEMATOCRIT 41.8 % (37.0-47.0); HEMOGLOBIN 13.6 g/dl (12.0-16.0); LYMPH # 1.7 10*3/uL (1.3-4.4); LYMPH % 31.6 % (27.0-41.0); MEAN CELL VOLUME 86.9 fl (81.0-99.0); MEAN CORPUSCULAR HGB 28.3 pg (27.0-31.0); MEAN CORPUSCULAR HGB CONC 32.5 g/dl (33.0-37.0); MEAN PLATELET VOLUME 9.4 fl (9.6-12.3); MONO # 0.3 10*3/uL (0.1-1.0); MONO % 6.3 % (3.0-9.0); NEUT # 3.2 10*3/uL (2.3-7.9); NEUT % 60.4 % (47.0-73.0); PLATELET COUNT AUTOMATED 211 10*3/uL (130-400); RED BLOOD COUNT 4.81 10*6/uL (4.10-5.10); RED CELL DISTRI WIDTH 12.5 % (0-14.5); WHITE BLOOD COUNT 5.3 10*3/uL (4.8-10.8)
[2019-10-05 13:32] LABS: ACT PARTIAL THROMBO TIME 24.1 SECONDS (20.0-32.1); INTERNATIONAL NORM RATIO 0.9 (2.0-3.5)
[2019-10-05 13:40] LABS: ALBUMIN 3.2 gm/dl (3.1-4.5); BUN 14 mg/dl (7-24); CHLORIDE 110 mmol/L (98-107); LIPASE 114 U/L (73-393); POTASSIUM 3.7 mmol/L (3.5-5.1); SGOT/AST 15 IU/L (3-35); SODIUM 141 mmol/L (136-145)
[2019-10-05 13:43] LABS: ALKALINE PHOSPHATASE 68 U/L (45-117); CREATININE 0.83 mg/dL (0.55-1.02); SGPT/ALT 31 U/L (12-78); TOTAL PROTEIN 6.5 gm/dL (6.4-8.2)
[2019-10-05 13:44] LABS: TROPONIN I < 0.015 ng/ml (<0.045)
[2019-10-05 14:00] VITALS: BP 146/82
[2019-10-05] MEDS ORDERED: VITAMIN D35000 UNIT PO (14:58)
[2019-10-05] MEDS ORDERED: OMEPRAZOLE40 MG PO (14:59)
[2019-10-05 15:00] VITALS: BP 144/84
--- NOTE | 2019-10-05 15:10 | NUR ---
A 54, admitted to , under the services of Dr. MARIN WRIGHT,[facility] with a diagnosis of chest pain palpitations. Chief complaint is a heavy pressure to left sided chest near shoulder and left arm. Nonradiating. Patient arrived via stretcher from ER. Monitor applied. Initial assessment completed. Vital signs taken and recorded. See assessment for past medical history, medications and allergies. Patient oriented to unit. [facility] visitation policy reviewed. MARIANNE GRACE
--- NOTE | 2019-10-05 19:42 | NUR ---
PATIENT IS AAOX3 RESTING IN BED WITH EASY AND REGULAR RESPERS ON ROOM AIR. ASSESSMENT IS COMPLETE WITH NO S/S OF DISTRESS NOTED AT THIS TIME. PATIENT C/O PAIN AT IV SITE. BED IS LOW, LOCKED, AND CALL LIGHT IS WITHIN REACH. WILL CONTINUE TO MONITOR, SEE SHIFT ASSESSMENT. 300ML CLEAR DARK YELLOW URINE EMPTIED FROM HAT IN BATHROOM.
[2019-10-05 20:00] VITALS: BP 146/75
--- NOTE | 2019-10-05 20:17 | NUR ---
Hep Lock discontinued. Site PAINFUL PER PATIENT. Pressure applied. Sterile dressing applied. IV started right forearm with #22 angiocath after 1 attempt. The IV site was prepped with Chloraprep. Heparin lock attached. Sterile dressing applied. Patient tolerated precedure well. Procedure performed according to [facility] policy MARIANNE LAZARO
--- NOTE | 2019-10-05 22:03 | NUR ---
CALL PLACED TO DR. FUNES IN REGARDS TO PATIENT C/O RESTLESS LEGS. 0.5MG OF REQUIP ORDERED AT THIS TIME.
--- NOTE | 2019-10-05 22:52 | NUR ---
SCHEDULED REQUIP GIVEN PER ORDER. PATIENT TOLERATED WELL. CALL LIGHT IS WITHIN REACH, WILL MONITOR EFFECT.
[2019-10-06] VITALS: BP 113/54
--- NOTE | 2019-10-06 | NUR ---
PRN REQUIP EFFECTIVE PER PATIENT.
--- NOTE | 2019-10-06 02:16 | NUR ---
24 HR. CHART CHECK COMPLETE.
--- NOTE | 2019-10-06 09:12 | NUR ---
PT OFF OF FLOOR FOR STRESS TEST. PT ALSO C/O NAUSEA. DR FUNES NOTIFIED AND GIVES ORDERS TO PLACE ORDER FOR 8 MG IV ZOFRAN Q8H. WILL MEDICATE PT WHEN AVAILABLE.
--- NOTE | 2019-10-06 09:43 | NUR ---
CALLED [facility] TO SEE IF THEY ARE OKAY WITH PT HAVING IV ZOFRAN WHILE SHE IS DOWN THERE FOR STRESS TEST. AWAITING CALL BACK AT THIS TIME.
--- NOTE | 2019-10-06 10:29 | NUR ---
DR FUNES NOTIFIED THAT [facility] STATES THAT PT SEEMS TO HAVE HAD A REACTION TO ZOFRAN. [facility] NURSE STATES THAT PT HAS "HIVES" AROUND IV SITE. DR FUNES ORDERS 25 MG BENADRYL IV X1 NOW. WILL MEDICATE PT.
--- NOTE | 2019-10-06 10:30 | NUR ---
American Sign Language Teacher in to see patient. She is currently not in her room. Will follow up at a later time.
--- NOTE | 2019-10-06 10:45 | NUR ---
IV SITE NOT REDDENED BEFORE. STATES THAT IT IS FEELING BETTER. WELT/HIVE NOT RAISED.
--- NOTE | 2019-10-06 11:17 | NUR ---
INFORMED CONSENT SIGNED FOR LEXISCAN STRESS TEST WITH DR. FUNES. RESTING EKG NSR, HR 64, BP 140/88. PULSE OX 99% AND LUNGS CLEAR. COMPLETED ONE MINUTE OF LEXISCAN PROTOCOL RECEIVING LEXISCAN 0.4MG IV OVER 10 SECONDS. NO ARRHYTHMIAS OR ST CHANGES NOTED. PT HAD NO NEW C/O. LAST RECOVERY HR 100, BP 136/80. WAITING NUCLEAR SCANNING IN STABLE CONDITION.
[2019-10-06 12:00] VITALS: BP 130/67
--- NOTE | 2019-10-06 12:27 | NUR ---
VERIFIED WITH DR FUNES THAT HE WOULD LIKE PT TO STAY AT HOSPITAL UNTIL RESULTS ARE GIVEN BY DR ROMERO. WILL NOTIFY PATIENT.
--- NOTE | 2019-10-06 15:15 | NUR ---
Dance Studio Manager in to talk to patient. Patient states lives at home with her and grandchild. There are 2 steps in the home. Physician: Dr. Sylvester Ku [facility] services: has had in the past but not currently Patient's level of ADLs: INDEPENDENT Patient has working utilities: yes DME: nebulizer Follow-up physician's appointment after d/c: she prefers to make her own follow up appt after discharge Does patient want to access PORTAL?: no Discharge plan discussed with patient and her who is sitting at the bedside. She lives at home with her and her grandchild. She is independent in her ADLs and ambulation. Discussed home health care services and she denies any home needs at this time. She is provided with her discharge paperwork at this time. Her will provide transportation on discharge. TWAN FAGAN
--- NOTE | 2019-10-06 15:20 | NUR ---
Discharge instructions reviewed with patient/family. Patient receptive and verbalizes understanding. Follow-up care arranged. Written instructions given to patient/family. TRISTON SNELL
== END 2019-10-06 15:24 | disposition home or self-care (01) | DRG 203 ==
LOC: ED 11:24 → 4E 14:43 → EDHOLD 14:43 → 4E 15:03
PROVIDERS: Physician Assistant; ADMIT Internal Medicine
PROC: 4A02XM4 Measurement of Cardiac Total Activity, External Approach (ICD-10-PCS; principal; 2019-10-06)
PROC: 3E073KZ Introduction of Other Diagnostic Substance into Coronary Artery, Percutaneous Approach (ICD-10-PCS; 2019-10-06)
DX: R07.89 Other chest pain (principal); I10 Essential (primary) hypertension; E55.9 Vitamin D deficiency, unspecified; K21.0 Gastro-esophageal reflux disease with esophagitis; E66.9 Obesity, unspecified; R32 Unspecified urinary incontinence; J30.1 Allergic rhinitis due to pollen; J43.2 Centrilobular emphysema; F17.210 Nicotine dependence, cigarettes, uncomplicated; F41.9 Anxiety disorder, unspecified; R00.2 Palpitations; R73.03 Prediabetes; Z90.49 Acquired absence of other specified parts of digestive tract; Z98.51 Tubal ligation status; Z82.49 Family history of ischemic heart disease and other diseases of the circulatory system; Z80.8 Family history of malignant neoplasm of other organs or systems; Z83.49 Family history of other endocrine, nutritional and metabolic diseases; Z71.6 Tobacco abuse counseling; Z68.41 Body mass index [BMI] 40.0-44.9, adult

== ENCOUNTER → 2019-10-15 | Outpatient (CLI) | payer OTHER ==
[~2019-10-15] MED LIST changes: +VITAMIN D35000 UNIT PO
[2019-10-16 10:05] LABS: RHEUMATOID ARTHRITIS FACTOR <10.0 IU/mL (0.0-13.9)
== END | disposition home or self-care (01) ==
LOC: LAB 12:39
PROVIDERS: Nurse Practitioner Family
DX: R00.2 Palpitations (principal); M25.50 Pain in unspecified joint; R42 Dizziness and giddiness

== ENCOUNTER 2019-12-01 06:23 | Emergency (ER) | payer OTHER ==
[~2019-12-01] VITALS: Ht 160 cm; Wt 97.5 kg
[2019-12-01 06:28] VITALS: BP 148/84
[2019-12-01] MEDS ORDERED: ONDANSETRON4 MG SL (07:01)
== END 2019-12-01 07:06 | disposition home or self-care (01) ==
LOC: ED 06:23
DX: K21.0 Gastro-esophageal reflux disease with esophagitis (principal); J44.9 Chronic obstructive pulmonary disease, unspecified; I10 Essential (primary) hypertension; E78.00 Pure hypercholesterolemia, unspecified; Z79.82 Long term (current) use of aspirin; Z79.899 Other long term (current) drug therapy; Z90.49 Acquired absence of other specified parts of digestive tract; Z98.51 Tubal ligation status; Z87.891 Personal history of nicotine dependence

== ENCOUNTER 2019-12-22 05:34 | Emergency (ER) | payer OTHER ==
[~2019-12-22] VITALS: Ht 160 cm; Wt 95.3 kg
[~2019-12-22 05:34] MED LIST changes: +ONDANSETRON4 MG SL
[2019-12-22 05:45] VITALS: BP 120/70
[2019-12-22 06:31] LABS: BASO % 0.2 % (0.0-1.0); EOS % 0.2 % (1.0-4.0); HEMATOCRIT 42.6 % (37.0-47.0); LYMPH # 0.8 10*3/uL (1.3-4.4); LYMPH % 14.4 % (27.0-41.0); MEAN CELL VOLUME 86.9 fl (81.0-99.0); MEAN CORPUSCULAR HGB 29.2 pg (27.0-31.0); MEAN CORPUSCULAR HGB CONC 33.6 g/dl (33.0-37.0); MEAN PLATELET VOLUME 9.7 fl (9.6-12.3); MONO # 0.2 10*3/uL (0.1-1.0); MONO % 4.4 % (3.0-9.0); NEUT # 4.4 10*3/uL (2.3-7.9); NEUT % 80.6 % (47.0-73.0); PLATELET COUNT AUTOMATED 188 10*3/uL (130-400); RED CELL DISTRI WIDTH 13.3 % (0-14.5); WHITE BLOOD COUNT 5.5 10*3/uL (4.8-10.8)
[2019-12-22 06:41] LABS: ALBUMIN 3.4 gm/dl (3.1-4.5); ALKALINE PHOSPHATASE 59 U/L (45-117); BUN 10 mg/dl (7-24); CHLORIDE 109 mmol/L (98-107); CREATININE 0.84 mg/dL (0.55-1.02); POTASSIUM 3.9 mmol/L (3.5-5.1); SGOT/AST 25 IU/L (3-35); SGPT/ALT 27 U/L (12-78); SODIUM 138 mmol/L (136-145); TOTAL PROTEIN 6.5 gm/dL (6.4-8.2)
== END 2019-12-22 07:10 | disposition home or self-care (01) ==
LOC: ED 05:34
PROVIDERS: Emergency Medicine
DX: K21.0 Gastro-esophageal reflux disease with esophagitis (principal); R11.2 Nausea with vomiting, unspecified; I10 Essential (primary) hypertension; J44.9 Chronic obstructive pulmonary disease, unspecified; F41.9 Anxiety disorder, unspecified; E78.00 Pure hypercholesterolemia, unspecified; F17.200 Nicotine dependence, unspecified, uncomplicated; Z79.899 Other long term (current) drug therapy; Z79.82 Long term (current) use of aspirin; Z98.61 Coronary angioplasty status; Z90.49 Acquired absence of other specified parts of digestive tract; Z90.89 Acquired absence of other organs; Z98.51 Tubal ligation status; Z87.19 Personal history of other diseases of the digestive system

== ENCOUNTER 2020-01-31 18:27 | Emergency (ER) | payer OTHER ==
[~2020-01-31] VITALS: Ht 160 cm; Wt 99.8 kg
[2020-01-31 18:31] VITALS: BP 122/67
== END 2020-01-31 20:15 | disposition home or self-care (01) ==
LOC: ED 18:27
DX: S92.512A Displaced fracture of proximal phalanx of left lesser toe(s), initial encounter for closed fracture (principal); Z79.899 Other long term (current) drug therapy; Z79.82 Long term (current) use of aspirin; W22.8XXA Striking against or struck by other objects, initial encounter; Y93.89 Activity, other specified; Y92.89 Other specified places as the place of occurrence of the external cause; Y99.8 Other external cause status

== ENCOUNTER → 2020-03-25 | Outpatient (CLI) | payer OTHER | END | disposition home or self-care (01) | LOC: COVID19 00:37 | DX: Z03.818 Encounter for observation for suspected exposure to other biological agents ruled out (principal) ==

== ENCOUNTER 2020-06-05 19:38 | Emergency (ER) | payer OTHER ==
[~2020-06-05] VITALS: Ht 160 cm; Wt 95.3 kg
[2020-06-05 20:23] VITALS: BP 125/65
[2020-06-06] MEDS ORDERED: IBU600 M1 PO (09:18)
== END 2020-06-05 21:00 | disposition left against medical advice (07) ==
LOC: ED 19:38
DX: M25.561 Pain in right knee (principal); I10 Essential (primary) hypertension; K21.9 Gastro-esophageal reflux disease without esophagitis; F41.9 Anxiety disorder, unspecified; J44.9 Chronic obstructive pulmonary disease, unspecified; Z53.29 Procedure and treatment not carried out because of patient's decision for other reasons

== ENCOUNTER 2020-06-06 07:55 | Emergency (ER) | payer OTHER ==
[~2020-06-06] VITALS: Wt 95.3 kg
[2020-06-06 08:01] VITALS: BP 141/85
[2020-06-06] MEDS ORDERED: IBU600 M1 PO (09:18)
== END 2020-06-06 09:43 | disposition home or self-care (01) ==
LOC: ED 07:55
DX: S80.01XA Contusion of right knee, initial encounter (principal); Z79.899 Other long term (current) drug therapy; Z79.82 Long term (current) use of aspirin; Z72.0 Tobacco use; W18.39XA Other fall on same level, initial encounter; Y93.89 Activity, other specified; Y92.89 Other specified places as the place of occurrence of the external cause; Y99.8 Other external cause status

== ENCOUNTER → 2020-09-14 | Outpatient (CLI) | payer OTHER ==
[~2020-09-14] MED LIST changes: +IBU600 M1 PO
[2020-09-14 09:32] LABS: ALBUMIN 3.5 gm/dl (3.1-4.5); BUN 14 mg/dl (7-24); CHLORIDE 107 mmol/L (98-107); POTASSIUM 3.7 mmol/L (3.5-5.1); SODIUM 140 mmol/L (136-145); TOTAL PROTEIN 6.9 gm/dL (6.4-8.2)
[2020-09-14 09:34] LABS: ALKALINE PHOSPHATASE 78 U/L (45-117); CHOLESTEROL 278 mg/dL (<200); CPK 70 U/L (26-192); CREATININE 0.88 mg/dL (0.55-1.02); HDL CHOLESTEROL 38 mg/dl (40-60); LDL CHOLESTEROL 212 mg/dL (9-159); SGOT/AST 14 IU/L (3-35); SGPT/ALT 24 U/L (12-78); TRIGLYCERIDES 142 mg/dl (<150); VLDL CHOLESTEROL 28 mg/dL (6-40)
== END | disposition home or self-care (01) ==
LOC: LAB 08:40
PROVIDERS: ATTEND Family Medicine
DX: E78.00 Pure hypercholesterolemia, unspecified (principal)

== ENCOUNTER → 2020-12-16 | Outpatient (CLI) | payer OTHER | END | disposition home or self-care (01) | LOC: COVID19 08:21 | PROVIDERS: ATTEND Family Medicine | DX: Z20.822 Contact with and (suspected) exposure to COVID-19 (principal) ==

== ENCOUNTER 2020-12-29 09:29 | Observation (INO) | payer OTHER ==
[~2020-12-29] VITALS: Ht 160 cm; Wt 106.3 kg
[2020-12-29] VITALS (11 sets, daily range): BP systolic 129–154; BP diastolic 64–80
[2020-12-29 10:33] LABS: BASO % 0.8 % (0.0-1.0); EOS % 0.8 % (1.0-4.0); HEMATOCRIT 42.6 % (37.0-47.0); LYMPH # 1.5 10*3/uL (1.3-4.4); LYMPH % 31.9 % (27.0-41.0); MEAN CELL VOLUME 84.2 fl (81.0-99.0); MEAN CORPUSCULAR HGB 28.1 pg (27.0-31.0); MEAN CORPUSCULAR HGB CONC 33.3 g/dl (33.0-37.0); MEAN PLATELET VOLUME 9.4 fl (9.6-12.3); MONO # 0.3 10*3/uL (0.1-1.0); MONO % 5.8 % (3.0-9.0); NEUT # 2.9 10*3/uL (2.3-7.9); NEUT % 60.5 % (47.0-73.0); PLATELET COUNT AUTOMATED 188 10*3/uL (130-400); RED BLOOD COUNT 5.06 10*6/uL (4.10-5.10); RED CELL DISTRI WIDTH 13.5 % (0-14.5); WHITE BLOOD COUNT 4.8 10*3/uL (4.8-10.8)
[2020-12-29 10:44] LABS: ACT PARTIAL THROMBO TIME 24.8 SECONDS (20.0-32.1)
[2020-12-29 10:50] LABS: ALBUMIN 3.4 gm/dl (3.1-4.5); ALKALINE PHOSPHATASE 72 U/L (45-117); BUN 11 mg/dl (7-24); CHLORIDE 108 mmol/L (98-107); CREATININE 0.92 mg/dL (0.55-1.02); POTASSIUM 3.5 mmol/L (3.5-5.1); SGOT/AST 9 IU/L (3-35); SGPT/ALT 17 U/L (12-78); SODIUM 140 mmol/L (136-145); TOTAL PROTEIN 6.7 gm/dL (6.4-8.2)
[2020-12-29 10:55] LABS: TROPONIN I < 0.015 ng/ml (<0.045)
[2020-12-29] MEDS ORDERED: PEPCID40 MG PO (18:28)
[2020-12-29] MEDS ORDERED: LOSARTAN POTASS25 M1 PO (18:29)
[2020-12-29] MEDS ORDERED: PEPCID AC20 MG PO ×2 (18:29→18:31)
[2020-12-29] MEDS ORDERED: SYMB160 INH (18:30)
[2020-12-29] MEDS ORDERED: ROSUVASTATIN CA10 MG PO (18:30)
[2020-12-29] MEDS ORDERED: PROTONIX40 MG PO (18:32)
[2020-12-29] MEDS ORDERED: CLOBETASOL PROP15 GM T (20:37)
[2020-12-30 01:18] VITALS: BP 121/58
[2020-12-30 06:11] LABS: ALBUMIN 3.1 gm/dl (3.1-4.5); ALKALINE PHOSPHATASE 66 U/L (45-117); BUN 13 mg/dl (7-24); CHLORIDE 108 mmol/L (98-107); CREATININE 0.79 mg/dL (0.55-1.02); POTASSIUM 3.6 mmol/L (3.5-5.1); SGOT/AST 7 IU/L (3-35); SGPT/ALT 15 U/L (12-78); SODIUM 140 mmol/L (136-145); TOTAL PROTEIN 6.5 gm/dL (6.4-8.2)
[2020-12-30 06:21] LABS: BASO % 0.4 % (0.0-1.0); EOS # 0.1 10*3/uL (0.0-0.4); EOS % 1.2 % (1.0-4.0); HEMATOCRIT 41.6 % (37.0-47.0); LYMPH # 1.7 10*3/uL (1.3-4.4); LYMPH % 32.4 % (27.0-41.0); MEAN CELL VOLUME 85.4 fl (81.0-99.0); MEAN CORPUSCULAR HGB 27.5 pg (27.0-31.0); MEAN CORPUSCULAR HGB CONC 32.2 g/dl (33.0-37.0); MEAN PLATELET VOLUME 10.2 fl (9.6-12.3); MONO # 0.3 10*3/uL (0.1-1.0); MONO % 6.6 % (3.0-9.0); NEUT # 3.1 10*3/uL (2.3-7.9); NEUT % 59.4 % (47.0-73.0); PLATELET COUNT AUTOMATED 185 10*3/uL (130-400); RED BLOOD COUNT 4.87 10*6/uL (4.10-5.10); RED CELL DISTRI WIDTH 13.6 % (0-14.5); WHITE BLOOD COUNT 5.2 10*3/uL (4.8-10.8)
[2020-12-30 08:00] VITALS: BP 104/74
[2020-12-30 09:53] LABS: BILIRUBIN Negative (Negative); BLOOD 1+ (Negative); CLARITY Clear (Clear); COLOR Yellow (Yellow); GLUCOSE Negative (Negative); KETONE Negative (Negative); LEUKO ESTERASE Negative (Negative); NITRITE Negative (Negative); PH 6.5 (4.5-8.0); SPECIFIC GRAVITY 1.025 (1.001-1.030)
[2020-12-30 09:58] LABS: BACTERIA TRACE; EPITHELIAL CELLS TNTC
[2020-12-30 10:01] LABS: URINE AMPHETAMINES < 1000 (1000ng/ml); URINE BARBITURATES < 200 (200ng/ml); URINE BENZODIAZEPINES < 200 (200ng/ml); URINE CANNABINOIDS (THC) > 50 (50ng/ml); URINE COCAINE < 300 (300ng/ml); URINE METHADONE < 300 (300ng/ml); URINE OPIATES < 300 (300ng/ml)
[2020-12-30 10:04] LABS: URINE PHENCYCLIDINE < 25 (25ng/ml)
[2020-12-30] MEDS ORDERED: LOSARTAN POTASS25 M1 PO (15:22)
[2020-12-30] MEDS ORDERED: ROSUVASTATIN CA10 MG PO (15:22)
== END 2020-12-30 15:57 | disposition home or self-care (01) ==
LOC: ED 09:29 → EDHOLD 11:06 → 4E 11:06
PROVIDERS: Emergency Medicine; ADMIT Student in an Organized Health Care Education/Training Program; ATTEND Student in an Organized Health Care Education/Training Program
DX: R07.89 Other chest pain (principal); E78.00 Pure hypercholesterolemia, unspecified; E78.5 Hyperlipidemia, unspecified; F41.9 Anxiety disorder, unspecified; J44.9 Chronic obstructive pulmonary disease, unspecified; I10 Essential (primary) hypertension; E66.9 Obesity, unspecified; F12.10 Cannabis abuse, uncomplicated; R73.9 Hyperglycemia, unspecified; K21.00 Gastro-esophageal reflux disease with esophagitis, without bleeding; Z68.39 Body mass index [BMI] 39.0-39.9, adult; Z90.49 Acquired absence of other specified parts of digestive tract; Z90.89 Acquired absence of other organs; Z98.51 Tubal ligation status; Z79.899 Other long term (current) drug therapy

== ENCOUNTER 2021-03-28 07:53 | Emergency (ER) | payer OTHER ==
[~2021-03-28] VITALS: Wt 98.9 kg
[~2021-03-28 07:53] MED LIST changes: +CLOBETASOL PROP15 GM T; +LOSARTAN POTASS25 M1 PO; +PEPCID AC20 MG PO; +PEPCID40 MG PO; +PROTONIX40 MG PO; +ROSUVASTATIN CA10 MG PO; +SYMB160 INH
[2021-03-28 07:59] VITALS: BP 102/77
[2021-03-28 08:30] LABS: BILIRUBIN Negative (Negative); BLOOD 2+ (Negative); CLARITY Cloudy (Clear); COLOR Orange (Yellow); GLUCOSE Negative (Negative); KETONE Trace (Negative); LEUKO ESTERASE Trace (Negative); NITRITE Negative (Negative); PH 5.5 (4.5-8.0); SPECIFIC GRAVITY 1.025 (1.001-1.030)
[2021-03-28 08:32] LABS: BASO % 0.2 % (0.0-1.0); EOS % 0.9 % (1.0-4.0); HEMATOCRIT 44.6 % (37.0-47.0); LYMPH # 0.8 10*3/uL (1.3-4.4); LYMPH % 16.7 % (27.0-41.0); MEAN CELL VOLUME 85.4 fl (81.0-99.0); MEAN CORPUSCULAR HGB 27.6 pg (27.0-31.0); MEAN CORPUSCULAR HGB CONC 32.3 g/dl (33.0-37.0); MEAN PLATELET VOLUME 9.5 fl (9.6-12.3); MONO # 0.4 10*3/uL (0.1-1.0); MONO % 8.3 % (3.0-9.0); NEUT # 3.3 10*3/uL (2.3-7.9); NEUT % 73.7 % (47.0-73.0); PLATELET COUNT AUTOMATED 169 10*3/uL (130-400); RED BLOOD COUNT 5.22 10*6/uL (4.10-5.10); RED CELL DISTRI WIDTH 13.4 % (0-14.5); WHITE BLOOD COUNT 4.5 10*3/uL (4.8-10.8)
[2021-03-28 08:45] LABS: BACTERIA 3+; EPITHELIAL CELLS 21-30; MUCOUS 2+; RBC 16-20 rbc/hpf (0-2)
[2021-03-28 08:49] LABS: ALBUMIN 3.3 gm/dl (3.1-4.5); ALKALINE PHOSPHATASE 76 U/L (45-117); BUN 10 mg/dl (7-24); CHLORIDE 107 mmol/L (98-107); CREATININE 0.76 mg/dL (0.55-1.02); LIPASE 48 U/L (73-393); POTASSIUM 3.5 mmol/L (3.5-5.1); SGOT/AST 13 IU/L (3-35); SGPT/ALT 20 U/L (12-78); SODIUM 137 mmol/L (136-145); TOTAL PROTEIN 6.9 gm/dL (6.4-8.2)
[2021-03-28] MEDS ORDERED: CIPRO500 MG PO (10:51)
[2021-03-28] MEDS ORDERED: FLAGYL500 MG PO (10:51)
== END 2021-03-28 11:05 | disposition home or self-care (01) ==
LOC: ED 07:53
PROVIDERS: Family Medicine
DX: K57.92 Diverticulitis of intestine, part unspecified, without perforation or abscess without bleeding (principal); Z79.899 Other long term (current) drug therapy; Z87.891 Personal history of nicotine dependence

== ENCOUNTER → 2021-05-08 | Outpatient (CLI) | payer OTHER ==
[~2021-05-08] MED LIST changes: +CELEXA10 MG PO; +LOSARTAN POTAS100 M1 PO
[2021-05-08 11:32] LABS: MEAN CELL VOLUME 86.9 fl (81.0-99.0); MEAN CORPUSCULAR HGB 28.3 pg (27.0-31.0); MEAN CORPUSCULAR HGB CONC 32.6 g/dl (33.0-37.0); MEAN PLATELET VOLUME 9.5 fl (9.6-12.3); RED BLOOD COUNT 4.95 10*6/uL (4.10-5.10); RED CELL DISTRI WIDTH 13.5 % (0-14.5); WHITE BLOOD COUNT 4.6 10*3/uL (4.8-10.8)
[2021-05-08 12:17] LABS: CHLORIDE 109 mmol/L (98-107); SODIUM 140 mmol/L (136-145)
[2021-05-08 12:24] LABS: ALBUMIN 3.4 gm/dl (3.1-4.5); ALKALINE PHOSPHATASE 71 U/L (45-117); BUN 14 mg/dl (7-24); CHOLESTEROL 334 mg/dL (<200); CPK 48 U/L (26-192); CREATININE 0.82 mg/dL (0.55-1.02); FREE T4 0.81 ng/dl (0.76-1.46); LDL CHOLESTEROL 232 mg/dL (9-159); SGOT/AST 14 IU/L (3-35); SGPT/ALT 20 U/L (12-78); TOTAL PROTEIN 6.8 gm/dL (6.4-8.2); TRIGLYCERIDES 335 mg/dl (<150)
[2021-05-08 13:12] LABS: VITAMIN D, 25-HYDROXY 18.4 ng/mL (30-100)
== END | disposition home or self-care (01) ==
LOC: LAB 11:12
PROVIDERS: ATTEND Family Medicine
DX: E55.9 Vitamin D deficiency, unspecified (principal); E78.00 Pure hypercholesterolemia, unspecified; E74.00 Glycogen storage disease, unspecified; F41.1 Generalized anxiety disorder; R53.83 Other fatigue; R07.9 Chest pain, unspecified

== ENCOUNTER 2021-05-11 09:34 | Emergency (ER) | payer OTHER ==
[~2021-05-11] VITALS: Ht 160 cm; Wt 97.5 kg
[~2021-05-11 09:34] MED LIST changes: -CELEXA10 MG PO; -LOSARTAN POTAS100 M1 PO
[2021-05-11 09:54] LABS: BASO % 0.4 % (0.0-1.0); EOS % 0.7 % (1.0-4.0); HEMATOCRIT 48.2 % (37.0-47.0); LYMPH % 37.9 % (27.0-41.0); MEAN CELL VOLUME 85.9 fl (81.0-99.0); MEAN CORPUSCULAR HGB 27.5 pg (27.0-31.0); MEAN PLATELET VOLUME 9.4 fl (9.6-12.3); MONO # 0.4 10*3/uL (0.1-1.0); MONO % 6.5 % (3.0-9.0); NEUT # 2.9 10*3/uL (2.3-7.9); NEUT % 54.5 % (47.0-73.0); PLATELET COUNT AUTOMATED 217 10*3/uL (130-400); RED BLOOD COUNT 5.61 10*6/uL (4.10-5.10); RED CELL DISTRI WIDTH 13.4 % (0-14.5); WHITE BLOOD COUNT 5.4 10*3/uL (4.8-10.8)
[2021-05-11 10:09] LABS: ALBUMIN 3.7 gm/dl (3.1-4.5); ALKALINE PHOSPHATASE 80 U/L (45-117); BUN 10 mg/dl (7-24); CHLORIDE 106 mmol/L (98-107); CREATININE 0.88 mg/dL (0.55-1.02); POTASSIUM 3.7 mmol/L (3.5-5.1); SGOT/AST 14 IU/L (3-35); SGPT/ALT 23 U/L (12-78); SODIUM 139 mmol/L (136-145); TOTAL PROTEIN 7.8 gm/dL (6.4-8.2)
[2021-05-11 10:19] LABS: TROPONIN I < 0.015 ng/ml (<0.045)
[2021-05-11] MEDS ORDERED: LOSARTAN POTAS100 M1 PO ×2 (12:51→12:53)
[2021-05-11] MEDS ORDERED: CELEXA10 MG PO ×2 (12:52→12:53)
== END 2021-05-11 15:00 | disposition home or self-care (01) ==
LOC: ED 09:34
PROVIDERS: Emergency Medicine
DX: R07.89 Other chest pain (principal); R11.2 Nausea with vomiting, unspecified; J44.9 Chronic obstructive pulmonary disease, unspecified; K21.9 Gastro-esophageal reflux disease without esophagitis; I10 Essential (primary) hypertension; E66.9 Obesity, unspecified; Z79.899 Other long term (current) drug therapy; Z87.891 Personal history of nicotine dependence

== ENCOUNTER → 2021-06-30 | Outpatient (CLI) | payer OTHER ==
[~2021-06-30] MED LIST changes: +CELEXA10 MG PO; +LOSARTAN POTAS100 M1 PO
[2021-06-30 12:39] LABS: HEMATOCRIT 42.4 % (37.0-47.0); MEAN CELL VOLUME 86.4 fl (81.0-99.0); MEAN CORPUSCULAR HGB 28.1 pg (27.0-31.0); MEAN CORPUSCULAR HGB CONC 32.5 g/dl (33.0-37.0); MEAN PLATELET VOLUME 9.6 fl (9.6-12.3); RED BLOOD COUNT 4.91 10*6/uL (4.10-5.10); RED CELL DISTRI WIDTH 13.3 % (0-14.5); WHITE BLOOD COUNT 5.5 10*3/uL (4.8-10.8)
[2021-06-30 13:06] LABS: ALBUMIN 3.2 gm/dl (3.1-4.5); BUN 16 mg/dl (7-24); CHLORIDE 106 mmol/L (98-107); CHOLESTEROL 289 mg/dL (<200); CREATININE 0.89 mg/dL (0.55-1.02); POTASSIUM 3.7 mmol/L (3.5-5.1); SGOT/AST 11 IU/L (3-35); SGPT/ALT 23 U/L (12-78); SODIUM 140 mmol/L (136-145); TRIGLYCERIDES 118 mg/dl (<150)
[2021-06-30 13:15] LABS: ALKALINE PHOSPHATASE 70 U/L (45-117); CPK 76 U/L (26-192); FREE T4 0.91 ng/dl (0.76-1.46); LDL CHOLESTEROL 227 mg/dL (9-159); TOTAL PROTEIN 6.7 gm/dL (6.4-8.2)
[2021-06-30 13:35] LABS: VITAMIN D, 25-HYDROXY 26.8 ng/mL (30-100)
== END | disposition home or self-care (01) ==
LOC: LAB 12:02
PROVIDERS: ATTEND Family Medicine
DX: E78.00 Pure hypercholesterolemia, unspecified (principal); E55.9 Vitamin D deficiency, unspecified; R53.83 Other fatigue; K21.9 Gastro-esophageal reflux disease without esophagitis

== ENCOUNTER 2021-09-07 13:49 | Emergency (ER) | payer OTHER ==
[~2021-09-07] VITALS: Wt 103.4 kg
[2021-09-07] MEDS ORDERED: CITALOPRAM20 MG PO (15:12)
[2021-09-07] MEDS ORDERED: OXYBUTYNIN10 MG PO (15:12)
[2021-09-07 15:13] VITALS: BP 136/72
== END 2021-09-07 16:00 | disposition home or self-care (01) ==
LOC: ED 13:49
DX: R00.2 Palpitations (principal); J44.9 Chronic obstructive pulmonary disease, unspecified; K21.9 Gastro-esophageal reflux disease without esophagitis; I10 Essential (primary) hypertension; E78.00 Pure hypercholesterolemia, unspecified; E66.9 Obesity, unspecified; Z87.891 Personal history of nicotine dependence; Z79.899 Other long term (current) drug therapy

== ENCOUNTER → 2021-10-03 | Outpatient (CLI) | payer OTHER ==
[~2021-10-03] MED LIST changes: +CITALOPRAM20 MG PO; +OXYBUTYNIN10 MG PO
[2021-10-03 12:10] LABS: HEMATOCRIT 45.4 % (37.0-47.0); MEAN CELL VOLUME 86.5 fl (81.0-99.0); MEAN CORPUSCULAR HGB 28.4 pg (27.0-31.0); MEAN CORPUSCULAR HGB CONC 32.8 g/dl (33.0-37.0); RED BLOOD COUNT 5.25 10*6/uL (4.10-5.10); RED CELL DISTRI WIDTH 13.1 % (0-14.5); WHITE BLOOD COUNT 5.8 10*3/uL (4.8-10.8)
[2021-10-03 12:31] LABS: ALBUMIN 3.4 gm/dl (3.1-4.5); ALKALINE PHOSPHATASE 73 U/L (45-117); BUN 11 mg/dl (7-24); CHLORIDE 106 mmol/L (98-107); CHOLESTEROL 327 mg/dL (<200); CPK 66 U/L (26-192); CREATININE 0.81 mg/dL (0.55-1.02); LDL CHOLESTEROL 255 mg/dL (9-159); POTASSIUM 3.6 mmol/L (3.5-5.1); SGOT/AST 12 IU/L (3-35); SGPT/ALT 18 U/L (12-78); SODIUM 139 mmol/L (136-145); TRIGLYCERIDES 186 mg/dl (<150)
[2021-10-03 12:51] LABS: VITAMIN D, 25-HYDROXY 13.7 ng/mL (30-100)
[2021-10-04 05:06] LABS: RHEUMATOID ARTHRITIS FACTOR <10.0 IU/mL (<14.0)
== END | disposition home or self-care (01) ==
LOC: LAB 11:47 → MAMMO 13:00
PROVIDERS: ATTEND Family Medicine
DX: K21.9 Gastro-esophageal reflux disease without esophagitis (principal); E78.00 Pure hypercholesterolemia, unspecified; I10 Essential (primary) hypertension; E55.9 Vitamin D deficiency, unspecified; R53.83 Other fatigue; M79.10 Myalgia, unspecified site; N64.9 Disorder of breast, unspecified; N63.20 Unspecified lump in the left breast, unspecified quadrant

== ENCOUNTER → 2021-11-27 | Outpatient (CLI) | payer OTHER ==
[2021-11-27 09:42] LABS: BASO % 0.4 % (0.0-1.0); EOS # 0.1 10*3/uL (0.0-0.4); EOS % 1.5 % (1.0-4.0); HEMATOCRIT 43.7 % (37.0-47.0); LYMPH # 2.1 10*3/uL (1.3-4.4); LYMPH % 37.7 % (27.0-41.0); MEAN CELL VOLUME 86.5 fl (81.0-99.0); MEAN CORPUSCULAR HGB 28.5 pg (27.0-31.0); MEAN PLATELET VOLUME 9.2 fl (9.6-12.3); MONO # 0.4 10*3/uL (0.1-1.0); MONO % 6.9 % (3.0-9.0); NEUT # 2.9 10*3/uL (2.3-7.9); NEUT % 53.3 % (47.0-73.0); PLATELET COUNT AUTOMATED 217 10*3/uL (130-400); RED BLOOD COUNT 5.05 10*6/uL (4.10-5.10); RED CELL DISTRI WIDTH 12.9 % (0-14.5); WHITE BLOOD COUNT 5.5 10*3/uL (4.8-10.8)
[2021-11-27 10:06] LABS: BUN 16 mg/dl (7-24); CHLORIDE 106 mmol/L (98-107); CREATININE 0.98 mg/dL (0.55-1.02); POTASSIUM 4.7 mmol/L (3.5-5.1); SGOT/AST 14 IU/L (3-35); SGPT/ALT 19 U/L (12-78); SODIUM 139 mmol/L (136-145); TRIGLYCERIDES 137 mg/dl (<150)
[2021-11-27 10:11] LABS: ALKALINE PHOSPHATASE 70 U/L (45-117); CHOLESTEROL 223 mg/dL (<200); LDL CHOLESTEROL 161 mg/dL (9-159); T3 UPTAKE 33 % (31-39); THYROXINE (T4) TOTAL 9.1 ug/dl (4.8-13.9); TOTAL PROTEIN 6.8 gm/dL (6.4-8.2)
[2021-11-27 10:36] LABS: VITAMIN D, 25-HYDROXY 26.5 ng/mL (30-100)
== END | disposition home or self-care (01) ==
LOC: LAB 09:18
PROVIDERS: ATTEND Internal Medicine
DX: Z00.00 Encounter for general adult medical examination without abnormal findings (principal)

== ENCOUNTER → 2021-12-26 | Outpatient (CLI) | payer OTHER | END | disposition home or self-care (01) | LOC: US 13:03 | PROVIDERS: ATTEND Internal Medicine | DX: N18.4 Chronic kidney disease, stage 4 (severe) (principal) ==

== ENCOUNTER → 2022-01-02 | Outpatient (CLI) | payer OTHER | END | disposition home or self-care (01) | LOC: RAD 08:16 | PROVIDERS: ATTEND Internal Medicine | DX: R91.1 Solitary pulmonary nodule (principal); R06.02 Shortness of breath; J44.9 Chronic obstructive pulmonary disease, unspecified ==

== ENCOUNTER → 2022-01-16 | Outpatient (CLI) | payer OTHER | LOC: RAD 07:22 | PROVIDERS: ATTEND Internal Medicine | DX: R07.89 Other chest pain (principal) ==

== ENCOUNTER → 2022-02-28 | Outpatient (CLI) | payer OTHER ==
[2022-02-28 10:42] LABS: BASO % 0.3 % (0.0-1.0); EOS # 0.1 10*3/uL (0.0-0.4); HEMATOCRIT 42.6 % (37.0-47.0); LYMPH # 1.9 10*3/uL (1.3-4.4); LYMPH % 31.8 % (27.0-41.0); MEAN CELL VOLUME 88.2 fl (81.0-99.0); MEAN CORPUSCULAR HGB 28.6 pg (27.0-31.0); MEAN CORPUSCULAR HGB CONC 32.4 g/dl (33.0-37.0); MEAN PLATELET VOLUME 9.3 fl (9.6-12.3); MONO # 0.3 10*3/uL (0.1-1.0); MONO % 5.3 % (3.0-9.0); NEUT # 3.7 10*3/uL (2.3-7.9); NEUT % 61.4 % (47.0-73.0); PLATELET COUNT AUTOMATED 221 10*3/uL (130-400); RED BLOOD COUNT 4.83 10*6/uL (4.10-5.10); RED CELL DISTRI WIDTH 13.6 % (0-14.5); WHITE BLOOD COUNT 6.1 10*3/uL (4.8-10.8)
[2022-02-28 11:06] LABS: BUN 13 mg/dl (7-24); CHLORIDE 114 mmol/L (98-107); POTASSIUM 4.3 mmol/L (3.5-5.1); SODIUM 141 mmol/L (136-145)
[2022-02-28 11:10] LABS: ALKALINE PHOSPHATASE 69 U/L (45-117); CHOLESTEROL 220 mg/dL (<200); CREATININE 1.08 mg/dL (0.55-1.02); FREE T4 0.98 ng/dl (0.76-1.46); LDL CHOLESTEROL 164 mg/dL (9-159); SGOT/AST 16 IU/L (3-35); SGPT/ALT 23 U/L (12-78); TRIGLYCERIDES 112 mg/dl (<150)
== END ==
LOC: LAB 10:23
PROVIDERS: ATTEND Internal Medicine
DX: Z13.220 Encounter for screening for lipoid disorders (principal); Z13.228 Encounter for screening for other metabolic disorders; Z13.6 Encounter for screening for cardiovascular disorders; Z13.0 Encounter for screening for diseases of the blood and blood-forming organs and certain disorders involving the immune mechanism; Z13.1 Encounter for screening for diabetes mellitus; Z13.21 Encounter for screening for nutritional disorder; D51.9 Vitamin B12 deficiency anemia, unspecified; R53.81 Other malaise; R79.89 Other specified abnormal findings of blood chemistry; E55.9 Vitamin D deficiency, unspecified; E03.9 Hypothyroidism, unspecified; D52.9 Folate deficiency anemia, unspecified

== ENCOUNTER 2022-03-09 14:27 | Emergency (ER) | payer OTHER ==
[~2022-03-09] VITALS: Wt 108.0 kg
[2022-03-09 14:36] VITALS: BP 122/101
[2022-03-09 15:02] LABS: BASO % 0.2 % (0.0-1.0); EOS # 0.1 10*3/uL (0.0-0.4); EOS % 0.8 % (1.0-4.0); HEMATOCRIT 42.8 % (37.0-47.0); LYMPH # 2.9 10*3/uL (1.3-4.4); LYMPH % 34.6 % (27.0-41.0); MEAN CELL VOLUME 87.3 fl (81.0-99.0); MEAN CORPUSCULAR HGB 28.6 pg (27.0-31.0); MEAN CORPUSCULAR HGB CONC 32.7 g/dl (33.0-37.0); MONO # 0.4 10*3/uL (0.1-1.0); MONO % 5.1 % (3.0-9.0); NEUT # 4.9 10*3/uL (2.3-7.9); NEUT % 59.2 % (47.0-73.0); PLATELET COUNT AUTOMATED 238 10*3/uL (130-400); RED CELL DISTRI WIDTH 13.2 % (0-14.5); WHITE BLOOD COUNT 8.4 10*3/uL (4.8-10.8)
[2022-03-09 15:09] LABS: BILIRUBIN Negative (Negative); BLOOD Trace-Lysed (Negative); CLARITY Clear (Clear); COLOR Yellow (Yellow); GLUCOSE Negative (Negative); KETONE Negative (Negative); LEUKO ESTERASE Trace (Negative); NITRITE Negative (Negative); SPECIFIC GRAVITY <= 1.005 (1.001-1.030)
[2022-03-09 15:19] LABS: ALKALINE PHOSPHATASE 74 U/L (45-117); BUN 16 mg/dl (7-24); CHLORIDE 108 mmol/L (98-107); CREATININE 0.97 mg/dL (0.55-1.02); POTASSIUM 3.7 mmol/L (3.5-5.1); SGOT/AST 11 IU/L (3-35); SGPT/ALT 15 U/L (12-78); SODIUM 140 mmol/L (136-145); TOTAL PROTEIN 6.7 gm/dL (6.4-8.2)
[2022-03-09 15:32] LABS: BACTERIA 1+; EPITHELIAL CELLS 51-100
== END 2022-03-09 16:22 | disposition left against medical advice (07) ==
LOC: ED 14:27
PROVIDERS: Emergency Medicine
DX: R11.2 Nausea with vomiting, unspecified (principal); R53.1 Weakness; R10.9 Unspecified abdominal pain; R51.9 Headache, unspecified; Z79.899 Other long term (current) drug therapy; Z90.49 Acquired absence of other specified parts of digestive tract; Z90.89 Acquired absence of other organs; Z98.51 Tubal ligation status; Z87.891 Personal history of nicotine dependence

== ENCOUNTER 2022-03-15 09:50 | Emergency (ER) | payer OTHER ==
[~2022-03-15] VITALS: Ht 160 cm; Wt 108.0 kg
[2022-03-15 10:19] VITALS: BP 129/64
[2022-03-15 11:38] LABS: BASO % 0.2 % (0.0-1.0); EOS # 0.1 10*3/uL (0.0-0.4); EOS % 0.9 % (1.0-4.0); HEMATOCRIT 41.4 % (37.0-47.0); LYMPH # 1.8 10*3/uL (1.3-4.4); LYMPH % 32.8 % (27.0-41.0); MEAN CELL VOLUME 87.7 fl (81.0-99.0); MEAN CORPUSCULAR HGB CONC 33.1 g/dl (33.0-37.0); MEAN PLATELET VOLUME 9.3 fl (9.6-12.3); MONO # 0.5 10*3/uL (0.1-1.0); MONO % 9.1 % (3.0-9.0); NEUT % 56.6 % (47.0-73.0); PLATELET COUNT AUTOMATED 197 10*3/uL (130-400); RED BLOOD COUNT 4.72 10*6/uL (4.10-5.10); RED CELL DISTRI WIDTH 13.4 % (0-14.5); WHITE BLOOD COUNT 5.4 10*3/uL (4.8-10.8)
[2022-03-15 11:57] LABS: ALKALINE PHOSPHATASE 76 U/L (45-117); BUN 19 mg/dl (7-24); CHLORIDE 108 mmol/L (98-107); CREATININE 0.99 mg/dL (0.55-1.02); LIPASE 81 U/L (73-393); POTASSIUM 4.1 mmol/L (3.5-5.1); SGOT/AST 13 IU/L (3-35); SGPT/ALT 18 U/L (12-78); SODIUM 138 mmol/L (136-145); TOTAL PROTEIN 6.7 gm/dL (6.4-8.2)
[2022-03-15 13:18] LABS: BILIRUBIN Negative (Negative); BLOOD 1+ (Negative); CLARITY Clear (Clear); COLOR Dark Yellow (Yellow); GLUCOSE Negative (Negative); KETONE Trace (Negative); LEUKO ESTERASE Trace (Negative); NITRITE Negative (Negative); PH 6.5 (4.5-8.0); SPECIFIC GRAVITY >= 1.030 (1.001-1.030)
[2022-03-15 13:38] LABS: BACTERIA TRACE; EPITHELIAL CELLS 51-100
[2022-03-15] MEDS ORDERED: CARAFATE1 G1 PO (15:59)
[2022-03-15] MEDS ORDERED: FERROUS GLUCON324 MG PO (15:59)
[2022-03-15] MEDS ORDERED: DICYCLOMINE HCL10 MG PO (15:59)
== END 2022-03-15 16:19 | disposition home or self-care (01) ==
LOC: ED 09:50
PROVIDERS: Emergency Medicine
DX: N93.9 Abnormal uterine and vaginal bleeding, unspecified (principal); K21.9 Gastro-esophageal reflux disease without esophagitis; Z88.6 Allergy status to analgesic agent; Z79.899 Other long term (current) drug therapy; Z90.49 Acquired absence of other specified parts of digestive tract; Z98.51 Tubal ligation status; Z87.891 Personal history of nicotine dependence

== ENCOUNTER → 2022-03-22 | Outpatient (CLI) | payer OTHER ==
[~2022-03-22] MED LIST changes: +CARAFATE1 G1 PO; +DICYCLOMINE HCL10 MG PO; +FERROUS GLUCON324 MG PO
== END | disposition home or self-care (01) ==
LOC: US 08:04
PROVIDERS: ATTEND Internal Medicine
DX: R94.4 Abnormal results of kidney function studies (principal)

== ENCOUNTER → 2022-06-19 | Outpatient (CLI) | payer OTHER | END | disposition home or self-care (01) | LOC: RAD 12:31 | PROVIDERS: ATTEND Internal Medicine | DX: R06.02 Shortness of breath (principal); Z90.49 Acquired absence of other specified parts of digestive tract; M47.816 Spondylosis without myelopathy or radiculopathy, lumbar region; M47.814 Spondylosis without myelopathy or radiculopathy, thoracic region ==

== ENCOUNTER → 2022-07-17 | Outpatient (CLI) | payer OTHER | END | disposition home or self-care (01) | LOC: CT 00:22 | PROVIDERS: ATTEND Internal Medicine Critical Care Medicine | DX: R91.1 Solitary pulmonary nodule (principal); Z90.49 Acquired absence of other specified parts of digestive tract ==

== ENCOUNTER 2022-08-25 05:05 | Emergency (ER) | payer OTHER ==
[~2022-08-25] VITALS: Ht 160 cm; Wt 105.2 kg
[2022-08-25 05:13] VITALS: BP 140/55
[2022-08-25] MEDS ORDERED: Ondansetron4 MG PO (05:40)
[2022-08-25 06:03] LABS: BASO % 0.3 % (0.0-1.0); EOS % 0.5 % (1.0-4.0); LYMPH # 1.5 10*3/uL (1.3-4.4); LYMPH % 24.1 % (27.0-41.0); MEAN CELL VOLUME 89.4 fl (81.0-99.0); MEAN CORPUSCULAR HGB 30.1 pg (27.0-31.0); MEAN CORPUSCULAR HGB CONC 33.6 g/dl (33.0-37.0); MEAN PLATELET VOLUME 9.6 fl (9.6-12.3); MONO # 0.3 10*3/uL (0.1-1.0); NEUT # 4.2 10*3/uL (2.3-7.9); NEUT % 68.6 % (47.0-73.0); PLATELET COUNT AUTOMATED 235 10*3/uL (130-400); RED BLOOD COUNT 4.92 10*6/uL (4.10-5.10); RED CELL DISTRI WIDTH 13.2 % (0-14.5); WHITE BLOOD COUNT 6.2 10*3/uL (4.8-10.8)
[2022-08-25 06:25] LABS: ALKALINE PHOSPHATASE 54 U/L (46-116); BUN 18 mg/dl (9-23); CHLORIDE 105 mmol/L (98-107); LIPASE 33 U/L (12-53); POTASSIUM 4.2 mmol/L (3.4-5.1); SGPT/ALT 15 U/L (10-49); TOTAL PROTEIN 6.5 gm/dL (6.0-8.0)
== END 2022-08-25 10:49 | disposition home or self-care (01) ==
LOC: ED 05:05
PROVIDERS: Emergency Medicine
DX: R11.0 Nausea (principal); Z20.822 Contact with and (suspected) exposure to COVID-19; Z88.6 Allergy status to analgesic agent; Z79.899 Other long term (current) drug therapy; Z90.89 Acquired absence of other organs; Z90.49 Acquired absence of other specified parts of digestive tract; Z98.51 Tubal ligation status; Z87.891 Personal history of nicotine dependence

== ENCOUNTER 2022-10-14 12:40 | Emergency (ER) | payer OTHER ==
[~2022-10-14] VITALS: Ht 160 cm; Wt 100.7 kg
[~2022-10-14 12:40] MED LIST changes: +Ondansetron4 MG PO
[2022-10-14 12:47] VITALS: BP 141/67
[2022-10-14] MEDS ORDERED: VITAMIN E100 UNI1 PO (13:08)
[2022-10-14] MEDS ORDERED: FISH OIL 1,2001 EACH PO (13:08)
[2022-10-14] MEDS ORDERED: ZOCOR20 MG PO (13:09)
[2022-10-14] MEDS ORDERED: CYMBALTA30 MG PO (13:09)
[2022-10-14] MEDS ORDERED: NEURONTIN300 MG PO (13:10)
[2022-10-14] MEDS ORDERED: ASPIRIN81 M1 PO (13:11)
[2022-10-14] MEDS ORDERED: LASIX40 MG PO (13:12)
[2022-10-14] MEDS ORDERED: PROBIOTIC ACID1 EAC3 PO (13:12)
[2022-10-14 13:26] LABS: BASO % 0.5 % (0.0-1.0); EOS # 0.1 10*3/uL (0.0-0.4); HEMATOCRIT 44.7 % (37.0-47.0); LYMPH # 2.2 10*3/uL (1.3-4.4); LYMPH % 38.6 % (27.0-41.0); MEAN CELL VOLUME 89.9 fl (81.0-99.0); MEAN CORPUSCULAR HGB 29.8 pg (27.0-31.0); MEAN CORPUSCULAR HGB CONC 33.1 g/dl (33.0-37.0); MEAN PLATELET VOLUME 9.8 fl (9.6-12.3); MONO # 0.4 10*3/uL (0.1-1.0); MONO % 6.9 % (3.0-9.0); NEUT # 3.1 10*3/uL (2.3-7.9); NEUT % 52.8 % (47.0-73.0); PLATELET COUNT AUTOMATED 219 10*3/uL (130-400); RED BLOOD COUNT 4.97 10*6/uL (4.10-5.10); RED CELL DISTRI WIDTH 13.4 % (0-14.5); WHITE BLOOD COUNT 5.8 10*3/uL (4.8-10.8)
[2022-10-14 13:42] LABS: ALKALINE PHOSPHATASE 54 U/L (46-116); BUN 10 mg/dl (9-23); CHLORIDE 104 mmol/L (98-107); POTASSIUM 3.9 mmol/L (3.4-5.1); SGPT/ALT 18 U/L (10-49); TOTAL PROTEIN 6.8 gm/dL (6.0-8.0)
[2022-10-14] MEDS ORDERED: VIBRAMYCIN HYC100 MG PO (15:24)
[2022-10-14] MEDS ORDERED: ONDANSETRON4 MG SL (15:25)
== END 2022-10-14 15:41 | disposition home or self-care (01) ==
LOC: ED 12:40
PROVIDERS: Internal Medicine
DX: L02.213 Cutaneous abscess of chest wall (principal); I10 Essential (primary) hypertension; K21.9 Gastro-esophageal reflux disease without esophagitis; J44.9 Chronic obstructive pulmonary disease, unspecified; F41.9 Anxiety disorder, unspecified; I12.9 Hypertensive chronic kidney disease with stage 1 through stage 4 chronic kidney disease, or unspecified chronic kidney disease; N18.9 Chronic kidney disease, unspecified; Z88.8 Allergy status to other drugs, medicaments and biological substances; Z90.49 Acquired absence of other specified parts of digestive tract; Z90.89 Acquired absence of other organs; Z98.890 Other specified postprocedural states; Z98.51 Tubal ligation status; F17.210 Nicotine dependence, cigarettes, uncomplicated

== ENCOUNTER → 2022-10-22 | Outpatient (CLI) | payer OTHER ==
[~2022-10-22] MED LIST changes: +CYMBALTA30 MG PO; +FISH OIL 1,2001 EACH PO; +LASIX40 MG PO; +NEURONTIN300 MG PO; +PROBIOTIC ACID1 EAC3 PO; +VIBRAMYCIN HYC100 MG PO; +VITAMIN E100 UNI1 PO; +ZOCOR20 MG PO
[2022-10-22 09:26] LABS: BASO % 0.7 % (0.0-1.0); EOS # 0.1 10*3/uL (0.0-0.4); HEMATOCRIT 43.4 % (37.0-47.0); LYMPH # 2.1 10*3/uL (1.3-4.4); LYMPH % 34.2 % (27.0-41.0); MEAN CELL VOLUME 91.6 fl (81.0-99.0); MEAN CORPUSCULAR HGB 29.1 pg (27.0-31.0); MEAN CORPUSCULAR HGB CONC 31.8 g/dl (33.0-37.0); MEAN PLATELET VOLUME 9.2 fl (9.6-12.3); MONO # 0.4 10*3/uL (0.1-1.0); MONO % 6.1 % (3.0-9.0); NEUT # 3.5 10*3/uL (2.3-7.9); NEUT % 57.7 % (47.0-73.0); PLATELET COUNT AUTOMATED 212 10*3/uL (130-400); RED BLOOD COUNT 4.74 10*6/uL (4.10-5.10); RED CELL DISTRI WIDTH 13.3 % (0-14.5)
[2022-10-22 09:56] LABS: ALKALINE PHOSPHATASE 53 U/L (46-116); BUN 12 mg/dl (9-23); CHLORIDE 109 mmol/L (98-107); CHOLESTEROL 263 mg/dL (<200); FREE T4 1.08 ng/dl (0.89-1.76); LDL CHOLESTEROL 197 mg/dL (9-159); POTASSIUM 4.6 mmol/L (3.4-5.1); SGPT/ALT 14 U/L (10-49); TOTAL PROTEIN 6.4 gm/dL (6.0-8.0); TRIGLYCERIDES 133 mg/dl (<150)
[2022-10-22 10:05] LABS: VITAMIN D, 25-HYDROXY 29.9 ng/mL (30-100)
== END | disposition home or self-care (01) ==
LOC: LAB 08:58
PROVIDERS: ATTEND Internal Medicine
DX: Z13.820 Encounter for screening for osteoporosis (principal); Z13.89 Encounter for screening for other disorder; Z13.0 Encounter for screening for diseases of the blood and blood-forming organs and certain disorders involving the immune mechanism; Z13.1 Encounter for screening for diabetes mellitus; Z13.6 Encounter for screening for cardiovascular disorders; I10 Essential (primary) hypertension; E55.9 Vitamin D deficiency, unspecified; Z13.228 Encounter for screening for other metabolic disorders; Z13.21 Encounter for screening for nutritional disorder

== ENCOUNTER → 2022-11-14 | Outpatient (CLI) | payer OTHER | END | disposition home or self-care (01) | LOC: CARD 07:06 | PROVIDERS: ATTEND Internal Medicine | DX: K92.1 Melena (principal); K57.32 Diverticulitis of large intestine without perforation or abscess without bleeding; Z90.49 Acquired absence of other specified parts of digestive tract ==

== ENCOUNTER → 2023-09-04 | Day surgery (SDC) | payer OTHER ==
[~2023-09-04] VITALS: Ht 161.2 cm; Wt 110.7 kg
[~2023-09-04] MED LIST changes: +ALBUTEROL2.5 MG/0.5 INH; +CITALOPRAM10 MG PO; +DULOXETINE HCL60 MG PO; +FAMOTIDINE40 MG PO; +FISH OIL 1,0001 EAC3 PO; +FUROSEMIDE20 M1 PO; +IPRATROPIU0.2 MG/1 M NEB; +RA PROBIOTIC C PO; +SIMVASTATIN20 MG PO; +SIMVASTATIN40 MG PO; +VITAMIN E268 MG PO; +ZEGERID 20 MG1 EACH PO
[2023-09-04 08:12] VITALS: BP 152/83
[2023-09-04 09:48] VITALS: BP 129/83
[2023-09-04 10:03] VITALS: BP 127/86
[2023-09-04 10:18] VITALS: BP 145/82
[2023-09-05 14:08] LABS: ACID FAST SPEC PROCESSING Concentration (.)
== END | disposition home or self-care (01) ==
LOC: SDC 09-02 09:30
PROVIDERS: ATTEND Internal Medicine Critical Care Medicine
DX: R91.1 Solitary pulmonary nodule (principal); J40 Bronchitis, not specified as acute or chronic; J43.2 Centrilobular emphysema; J98.11 Atelectasis; J30.89 Other allergic rhinitis; K21.9 Gastro-esophageal reflux disease without esophagitis; J44.9 Chronic obstructive pulmonary disease, unspecified; F41.9 Anxiety disorder, unspecified; I12.9 Hypertensive chronic kidney disease with stage 1 through stage 4 chronic kidney disease, or unspecified chronic kidney disease; N18.9 Chronic kidney disease, unspecified; E78.00 Pure hypercholesterolemia, unspecified; Z98.890 Other specified postprocedural states; Z79.899 Other long term (current) drug therapy

== ENCOUNTER 2023-09-22 10:43 | Emergency (ER) | payer OTHER ==
[~2023-09-22] VITALS: Ht 160 cm; Wt 108.0 kg
[2023-09-22 11:06] VITALS: BP 136/62
[2023-09-22] MEDS ORDERED: PREDNISONE20 M1 PO (11:25)
== END 2023-09-22 11:42 | disposition home or self-care (01) ==
LOC: ED 10:43
DX: M25.561 Pain in right knee (principal); J44.9 Chronic obstructive pulmonary disease, unspecified; K21.9 Gastro-esophageal reflux disease without esophagitis; E78.00 Pure hypercholesterolemia, unspecified; R73.9 Hyperglycemia, unspecified; I12.9 Hypertensive chronic kidney disease with stage 1 through stage 4 chronic kidney disease, or unspecified chronic kidney disease; N18.9 Chronic kidney disease, unspecified; F41.9 Anxiety disorder, unspecified; Z88.6 Allergy status to analgesic agent; F12.10 Cannabis abuse, uncomplicated; F17.210 Nicotine dependence, cigarettes, uncomplicated; Z90.49 Acquired absence of other specified parts of digestive tract; Z90.89 Acquired absence of other organs; Z98.51 Tubal ligation status; Z98.890 Other specified postprocedural states; Z95.5 Presence of coronary angioplasty implant and graft

== ENCOUNTER → 2023-10-18 | Outpatient (CLI) | payer OTHER ==
[~2023-10-18] MED LIST changes: +PREDNISONE20 M1 PO
== END | disposition home or self-care (01) ==
LOC: LAB 08:28
PROVIDERS: ATTEND Internal Medicine Critical Care Medicine
DX: R53.83 Other fatigue (principal)

== ENCOUNTER → 2024-02-18 | Outpatient (CLI) | payer OTHER ==
[~2024-02-18] MED LIST changes: +LEADER ASPIRIN325 MG PO
== END | disposition home or self-care (01) ==
LOC: WOUNDCARE 03:07
PROVIDERS: ATTEND Nurse Practitioner Family
DX: E11.621 Type 2 diabetes mellitus with foot ulcer (principal); L97.511 Non-pressure chronic ulcer of other part of right foot limited to breakdown of skin; E11.40 Type 2 diabetes mellitus with diabetic neuropathy, unspecified; E11.52 Type 2 diabetes mellitus with diabetic peripheral angiopathy with gangrene; I96 Gangrene, not elsewhere classified; I10 Essential (primary) hypertension; J44.9 Chronic obstructive pulmonary disease, unspecified; K21.9 Gastro-esophageal reflux disease without esophagitis; M19.90 Unspecified osteoarthritis, unspecified site; F12.10 Cannabis abuse, uncomplicated; Z87.891 Personal history of nicotine dependence; Z79.82 Long term (current) use of aspirin; Z79.899 Other long term (current) drug therapy

== ENCOUNTER → 2024-03-03 | Outpatient (CLI) | payer OTHER | END | disposition home or self-care (01) | LOC: WOUNDCARE 01:43 | PROVIDERS: ATTEND Nurse Practitioner Family | DX: E11.621 Type 2 diabetes mellitus with foot ulcer (principal); L97.511 Non-pressure chronic ulcer of other part of right foot limited to breakdown of skin; E11.40 Type 2 diabetes mellitus with diabetic neuropathy, unspecified; E11.52 Type 2 diabetes mellitus with diabetic peripheral angiopathy with gangrene; I96 Gangrene, not elsewhere classified; I10 Essential (primary) hypertension; J44.9 Chronic obstructive pulmonary disease, unspecified; K21.9 Gastro-esophageal reflux disease without esophagitis; M19.90 Unspecified osteoarthritis, unspecified site; F12.10 Cannabis abuse, uncomplicated; Z87.891 Personal history of nicotine dependence; Z79.82 Long term (current) use of aspirin; Z79.899 Other long term (current) drug therapy ==

== ENCOUNTER → 2024-04-07 | Outpatient (CLI) | payer OTHER ==
[2024-04-07 09:31] LABS: BUN 7 mg/dl (9-23); CHLORIDE 107 mmol/L (98-107); POTASSIUM 3.7 mmol/L (3.4-5.1)
== END | disposition home or self-care (01) ==
LOC: LAB 09:00
PROVIDERS: ATTEND Physician Assistant
DX: I73.9 Peripheral vascular disease, unspecified (principal)

== ENCOUNTER → 2024-04-08 | Outpatient (CLI) | payer OTHER ==
[~2024-04-08] MED LIST changes: +IOHEXOL 350 MG/ML 100 ML VIAL IV ONE; +SODIUM CHLORIDE 0.9% 100 ML BAG IV ONE
== END | disposition home or self-care (01) ==
LOC: CT 00:33
PROVIDERS: ATTEND Physician Assistant
DX: K76.0 Fatty (change of) liver, not elsewhere classified (principal); I73.9 Peripheral vascular disease, unspecified; I70.0 Atherosclerosis of aorta

== ENCOUNTER → 2024-05-19 | Outpatient (CLI) | payer OTHER ==
[~2024-05-19] MED LIST changes: -IOHEXOL 350 MG/ML 100 ML VIAL IV ONE; +Ondansetron Hydrochloride 4 MG/2 ML VIAL IV SCH; +Ondansetron Hydrochloride 4 MG/2 ML VIAL ONE; +Regadenoson 0.4 MG/5 ML SYR IV ONE; -SODIUM CHLORIDE 0.9% 100 ML BAG IV ONE; +Technetium Tc 99M Tetrofosmi 0.23 MG KIT IJ SCH
== END | disposition home or self-care (01) ==
LOC: CARD 01:17
PROVIDERS: ATTEND Internal Medicine Cardiovascular Disease
DX: Z01.810 Encounter for preprocedural cardiovascular examination (principal); I10 Essential (primary) hypertension; E78.49 Other hyperlipidemia; R73.03 Prediabetes; I70.0 Atherosclerosis of aorta

== ENCOUNTER → 2024-06-23 | Outpatient (CLI) | payer OTHER ==
[~2024-06-23] MED LIST changes: +BUPIVACAINE 0.5% 10 ML VIAL ONE; +Lidocaine Hydrochloride 5 ML AMP ONE; -Ondansetron Hydrochloride 4 MG/2 ML VIAL IV SCH; -Ondansetron Hydrochloride 4 MG/2 ML VIAL ONE; -Regadenoson 0.4 MG/5 ML SYR IV ONE; -Technetium Tc 99M Tetrofosmi 0.23 MG KIT IJ SCH
[2024-06-23 11:07] LABS: BUN 8 mg/dl (9-23); CHLORIDE 108 mmol/L (98-107)
== END | disposition home or self-care (01) ==
LOC: LAB 10:25
PROVIDERS: ATTEND Physician Assistant
DX: I73.9 Peripheral vascular disease, unspecified (principal)

== ENCOUNTER → 2025-01-28 | Outpatient (CLI) | payer OTHER ==
[~2025-01-28] MED LIST changes: -BUPIVACAINE 0.5% 10 ML VIAL ONE; -Lidocaine Hydrochloride 5 ML AMP ONE
[2025-01-28 08:47] LABS: BASO % 0.4 % (0.0-1.0); EOS # 0.1 10*3/uL (0.0-0.4); EOS % 1.8 % (1.0-4.0); HEMATOCRIT 41.5 % (37.0-47.0); MEAN CELL VOLUME 88.9 fl (81.0-99.0); MEAN CORPUSCULAR HGB 28.7 pg (27.0-31.0); MEAN CORPUSCULAR HGB CONC 32.3 g/dl (33.0-37.0); MEAN PLATELET VOLUME 9.3 fl (9.6-12.3); MONO # 0.3 10*3/uL (0.1-1.0); MONO % 5.4 % (3.0-9.0); NEUT # 2.9 10*3/uL (2.3-7.9); NEUT % 53.4 % (47.0-73.0); PLATELET COUNT AUTOMATED 207 10*3/uL (130-400); RED BLOOD COUNT 4.67 10*6/uL (4.10-5.10); RED CELL DISTRI WIDTH 14.1 % (0-14.5); WHITE BLOOD COUNT 5.4 10*3/uL (4.8-10.8)
[2025-01-28 09:18] LABS: ALKALINE PHOSPHATASE 78 U/L (46-116); BUN 8 mg/dl (9-23); CHLORIDE 107 mmol/L (98-107); CHOLESTEROL 113 mg/dL (<200); FREE T4 0.93 ng/dl (0.89-1.76); LDL CHOLESTEROL 60 mg/dL (9-159); SGPT/ALT 12 U/L (5-49); TRIGLYCERIDES 120 mg/dl (<150)
[2025-01-28 09:20] LABS: VITAMIN D, 25-HYDROXY 29.2 ng/mL (30-100)
== END | disposition home or self-care (01) ==
LOC: LAB 08:27
PROVIDERS: ATTEND Internal Medicine
DX: E55.9 Vitamin D deficiency, unspecified (principal); D51.9 Vitamin B12 deficiency anemia, unspecified; Z13.0 Encounter for screening for diseases of the blood and blood-forming organs and certain disorders involving the immune mechanism; Z13.21 Encounter for screening for nutritional disorder; Z13.220 Encounter for screening for lipoid disorders; Z13.228 Encounter for screening for other metabolic disorders; Z13.6 Encounter for screening for cardiovascular disorders; Z13.89 Encounter for screening for other disorder

== ENCOUNTER 2025-02-09 06:37 | Emergency (ER) | payer OTHER, MEDICAID ==
[~2025-02-09] VITALS: Ht 160 cm; Wt 98.4 kg
[2025-02-09 06:49] VITALS: BP 156/72
[2025-02-09] MEDS ORDERED: Acetaminophen/Oxycodone 5 MG/325 MG TABLET PO ONE (07:20)
[2025-02-09] MEDS ORDERED: Ondansetron Hydrochloride 4 MG TAB PO ONE (07:20)
[2025-02-09] MEDS ORDERED: Dexamethasone Sodium Phospha 20 MG/5 ML VIAL IM ONE (07:20)
[2025-02-09] MEDS ORDERED: AMOX-CLAV 875-1 EACH PO (09:00)
[2025-02-09] MEDS ORDERED: TRAMADOL HCL50 MG PO (09:00)
== END 2025-02-09 09:10 | disposition home or self-care (01) ==
LOC: ED 06:37
DX: L03.211 Cellulitis of face (principal); J34.89 Other specified disorders of nose and nasal sinuses; I12.9 Hypertensive chronic kidney disease with stage 1 through stage 4 chronic kidney disease, or unspecified chronic kidney disease; N18.9 Chronic kidney disease, unspecified; K21.9 Gastro-esophageal reflux disease without esophagitis; J44.9 Chronic obstructive pulmonary disease, unspecified; F41.9 Anxiety disorder, unspecified; Z79.899 Other long term (current) drug therapy; Z88.6 Allergy status to analgesic agent; Z90.49 Acquired absence of other specified parts of digestive tract; Z90.89 Acquired absence of other organs; Z98.51 Tubal ligation status

== ENCOUNTER 2025-03-03 18:21 | Emergency (ER) | payer OTHER, MEDICAID ==
[~2025-03-03] VITALS: Wt 96.6 kg
[~2025-03-03 18:21] MED LIST changes: +AMOX-CLAV 875-1 EACH PO
[2025-03-03 18:28] VITALS: BP 135/65
[2025-03-03] MEDS ORDERED: SODIUM CHLORIDE 0.9% 1,000 ML IV ONE (19:05)
[2025-03-03] MEDS ORDERED: Ondansetron Hydrochloride 4 MG/2 ML VIAL IV ONE ×2 (19:05→20:05)
[2025-03-03 19:32] LABS: BASO # 0.0 10*3/uL (0.0-0.1); BASO % 0.2 % (0.0-1.0); EOS # 0.0 10*3/uL (0.0-0.4); EOS % 0.2 % (1.0-4.0); MEAN CELL VOLUME 87.1 fl (81.0-99.0); MEAN CORPUSCULAR HGB 28.7 pg (27.0-31.0); MEAN PLATELET VOLUME 9.3 fl (9.6-12.3); MONO # 0.5 10*3/uL (0.1-1.0); MONO % 5.8 % (3.0-9.0); NEUT # 6.0 10*3/uL (2.3-7.9); NEUT % 74.3 % (47.0-73.0); NUCLEATED RED BLOOD CELL 0.0 % (0.0-0.0); NUCLEATED RED BLOOD CELL 0.0 10*3/uL (0.0-0.0); PLATELET COUNT AUTOMATED 211 10*3/uL (130-400); RED CELL DISTRI WIDTH 13.7 % (0-14.5)
[2025-03-03 19:51] LABS: BUN 13 mg/dl (9-23)
[2025-03-03 21:14] LABS: BILIRUBIN Negative (Negative); BLOOD Negative (Negative); CLARITY Clear (Clear); COLOR Yellow (Yellow); KETONE Trace (Negative); LEUKO ESTERASE 1+ (Negative); NITRITE Negative (Negative); SPECIFIC GRAVITY 1.020 (1.001-1.030); UROBILINOGEN 1.0 E.U./dl (0.0-1.0)
[2025-03-03 21:36] LABS: BACTERIA 1+; FINE GRANULAR CAST 0-2; PH 8.5 (4.5-8.0); RBC 0-2 rbc/hpf (0-2)
== END 2025-03-03 22:00 | disposition home or self-care (01) ==
LOC: ED 18:21
PROVIDERS: Nurse Practitioner Family
DX: R55 Syncope and collapse (principal); I12.9 Hypertensive chronic kidney disease with stage 1 through stage 4 chronic kidney disease, or unspecified chronic kidney disease; N18.9 Chronic kidney disease, unspecified; K21.9 Gastro-esophageal reflux disease without esophagitis; J44.9 Chronic obstructive pulmonary disease, unspecified; F41.9 Anxiety disorder, unspecified; E78.00 Pure hypercholesterolemia, unspecified; Z79.899 Other long term (current) drug therapy; Z79.82 Long term (current) use of aspirin; Z90.49 Acquired absence of other specified parts of digestive tract; Z90.89 Acquired absence of other organs; Z87.891 Personal history of nicotine dependence